=== PATIENT | male | born 1940 | race Caucasian/White ===

== ENCOUNTER 2021-03-20 09:45 | Outpatient (REF) | payer MEDICARE, SELFPAY ==
[2021-03-20 09:53] LABS: MANUAL DIFF FLAG NO
[2021-03-20 10:53] LABS: Basophils Absolute Auto 0.1 X10*3/uL (0.0-0.2); Basophils Percent Auto 1.3 % (0-2); Eosinophils Absolute Auto 0.8 X10*3/uL (0.0-0.4); Eosinophils Percent Auto 10.7 % (0-4); Hematocrit 40.2 % (42.0-52.0); Hemoglobin 13.3 g/dl (14.0-18.0); Imm Gran Abs Auto 0.02 X10*3/uL (0.00-0.03); Imm Gran Pct Auto 0.3 % (0.0-0.4); Lymphocytes Absolute Auto 2.1 X10*3/uL (1.2-4.9); Lymphocytes Percent Auto 27.7 % (20-40); Mean Corpuscular HGB Conc 33.1 g/dl (31.0-36.0); Mean Corpuscular Volume 93.7 fL (80.0-98.0); Mean Platelet Volume 10.5 fL (9.4-12.4); Monocytes Absolute Auto 0.6 X10*3/uL (0.1-1.2); Monocytes Percent Auto 8.2 % (2-11); Neutrophils Absolute Auto 3.8 x10*3/uL (2.0-8.3); Neutrophils Percent Auto 51.8 % (45-73); Platelet Count 266 X10*3/uL (160-400); Red Blood Count 4.29 X10*6/uL (4.60-5.80); Red Cell Distribution Width 12.9 % (11.0-16.0); White Blood Count 7.4 X10*3/uL (4.8-10.8)
[2021-03-20 11:59] LABS: Alanine Aminotransferase 13 U/L (0-40); Albumin Level 4.1 g/dL (3.5-5.0); Alkaline Phosphatase 57 U/L (39-117); Anion Gap 14 (12-20); Aspartate Amino Transferase 15 U/L (5-37); Bilirubin Total 1.8 mg/dL (0.0-1.0); Blood Urea Nitrogen 31 mg/dL (9-16); Calcium 9.5 mg/dL (8.4-10.2); Carbon Dioxide 25 mmol/L (22-29); Chloride 105 mmol/L (96-108); Cholesterol 199 mg/dL; Estimated Glomerular Filt Rate > 60; Glucose Fasting 101 mg/dL (60-99); HDL Cholesterol 47 mg/dL; LDL Cholesterol Calculated 123 mg/dl; Potassium 4.6 mmol/L (3.3-5.1); Sodium 139 mmol/L (135-145); Triglycerides 148 mg/dL
[2021-03-20 12:10] LABS: Prostate Specific Antigen 8.15 ng/mL (<0.05-4.0); Vitamin D 25-OH Total 65.6 ng/mL (>30)
== END 2021-03-20 09:46 | disposition home or self-care (01) ==
LOC: HO.LAB 09:45
PROVIDERS: PCP Internal Medicine Medical Oncology; Visit Provider Internal Medicine Medical Oncology
DX: I10 Essential (primary) hypertension (principal); E66.3 Overweight; Z12.5 Encounter for screening for malignant neoplasm of prostate
CPT/HCPCS: 36415; 80053; 80061; 82306; 84153; 85025

== ENCOUNTER 2021-10-17 03:07 | Inpatient (IN) | payer OTHER, MEDICARE, SELFPAY ==
[2021-10-17] VITALS (31 sets, daily range): BP systolic 92–167; BP diastolic 33–77; PULSE 38–84; RESP 0–26; TEMP 34.7–37; O2SAT 11–100; BMI 25.6; BMI 26.8
--- NOTE | 2021-10-17 | ECG_ITS ---
Test Reason : C/A Blood Pressure : / mmHG Vent. Rate : 068 BPM Atrial Rate : 068 BPM P-R Int : 140 ms QRS Dur : 098 ms QT Int : 368 ms P-R-T Axes : 007 000 051 degrees QTc Int : 391 ms Normal sinus rhythm Minimal voltage criteria for LVH, may be normal variant ( Malik product ) ST depression in Lateral leads Abnormal ECG No previous ECGs available Referred By: Ronnie Sena Electronically Signed By:JYOTI GARCIA MD
--- NOTE | ~2021-10-17 | XR_ITS ---
EXAMINATION: XR CHEST CLINICAL INFORMATION: Status post OG tube and thoracic line catheter placement chest radiograph. COMPARISON: Chest radiograph done earlier today at 3:26 AM. TECHNIQUE: Frontal view of the chest was obtained. FINDINGS: Interval placement of left subclavian central catheter is noted with its tip seen projecting at the cavoatrial junction. [id number]-do-xjdryetr volume left-sided pneumothorax is also noted, new since prior study done earlier today. The tip of the endotracheal tube is located approximately 3.7 cm above the level of the charla. The tip of the OG tube is below the level of the diaphragm and is projecting in the region of the fundus of the stomach. Previously documented bilateral diffuse airspace disease appear unchanged. XR/XR chest 1V IMPRESSION: 1. Interval placement of left subclavian central catheter and [id number] volume left-sided pneumothorax. 2. The tip of the endotracheal tube is located approximately 3.7 cm above the level of the charla, unchanged. 3. Interval placement of OG tube is seen with its tip seen projecting below the diaphragm in the region of the fundus of the stomach. 4. No significant change within the lung field since the prior study done earlier today at 3:26 AM. This critical result was discussed with Dr. Garcia at 10:32 AM on 10/17/2021 and it was ascertained that the content and urgency of the report was understood at the time of direct communication.
--- NOTE | ~2021-10-17 | CT_ITS ---
EXAMINATION: CT CERVICAL SPINE WITHOUT CONTRAST; UNENHANCED CT OF THE HEAD. CLINICAL INFORMATION: Unresponsive COMPARISON: None TECHNIQUE: Routine unenhanced CT of the head with multiple coronal and sagittal reformatted images; routine unenhanced CT of the cervical spine with multiple coronal and sagittal reformatted images. This CT examination was performed using dose optimization techniques as appropriate, variously including the following: *Automated exposure control *Adjustment of mA and/or kV according to patient size (this includes techniques or standardized protocols for targeted exams where dose is matched to indication/reason for exam; i.e. extremities or head) *Use of iterative reconstruction technique DLP: 1302 mGy-cm FINDINGS: CT head: Mild diffuse commensurate prominence of ventricles and sulci. No intercranial hemorrhage, tumors or acute infarcts. Mild periventricular white matter patchy hypodensities. Segmental calcific atherosclerosis of the cavernous portions of the internal carotid arteries. Mild concentric mucosal thickening throughout the paranasal sinuses and mild retained secretions within the sphenoid sinus. Mild bilateral proptosis. No significant mastoid or middle air cavity effusions. CT cervical spine: No fractures or acute appearing subluxations noted. Moderate multilevel intervertebral disc space narrowing and mild multilevel facet arthropathic changes. The insulin visualized lung apices demonstrate evidence of alveolar pulmonary edema. Partial visualization of an endotracheal tube. Grossly normal thyroid. Dense bilateral carotid bulb calcific atherosclerosis. CT/CT head/brain wo con IMPRESSION: CT head: *No acute intracranial abnormalities. *Mild chronic pansinusitis. CT cervical spine: *No acute fractures or subluxations. *Partial visualization of alveolar pulmonary edema within the incidentally visualized lung apices. *Dense bilateral carotid bulb calcific atherosclerosis.
--- NOTE | ~2021-10-17 | CT_ITS ---
EXAMINATION: CT angio chest PE protocol, CT abdomen pelvis w con CLINICAL INFORMATION: Reason for Exam leg pain, cardiac arrest abdominal pain COMPARISON: Chest radiograph 10/16/2021. TECHNIQUE: IV contrast enhanced CT angiography of the chest with multiple 3-D MIPS angiographic reformatted images processed on the technologist workstation under concurrent supervision; IV contrast enhanced CT of the abdomen pelvis with multiple coronal and sagittal reformatted images. This CT examination was performed using dose optimization techniques as appropriate, variously including the following: *Automated exposure control *Adjustment of mA and/or kV according to patient size (this includes techniques or standardized protocols for targeted exams where dose is matched to indication/reason for exam; i.e. extremities or head) *Use of iterative reconstruction technique Intravenous contrast: Omnipaque 350 85 mL. DLP: 1302 mGy-cm FINDINGS: Pulmonary arterial system: High density intraluminal opacification of the visualized pulmonary arterial system is noted. No intraluminal filling defects are noted to suggest pulmonary emboli. The main and central pulmonary arteries are normal in caliber. Mediastinum: Endotracheal tube terminating 3 cm superior to the charla. Normal aortic caliber. Partial visualization of moderate-marked diffuse coronary artery calcific atherosclerosis. Normal heart size. No pericardial thickening or fluid collections. Lungs and pleura: Diffuse septal thickening and groundglass opacities are present. Bibasilar atelectasis of the lungs is noted. No pneumothoraces. CHEST WALL: No axillary lymphadenopathy. Liver: Trace fluid within the right subhepatic space. Periportal edema of the liver. Biliary system: Partially lapsed gallbladder. No biliary duct dilatation. Pancreas: Normal. Spleen: Trace left subphrenic fluid. Normal appearance of the spleen. Adrenal glands: Normal. Kidneys: 2.5 cm rounded low density benign-appearing simple cyst of the left kidney requiring no additional imaging follow-up. No hydronephrosis. Urinary bladder: Distended. Gastrointestinal system: Moderate sigmoid diverticulosis. Normal appendix. No intestinal dilatation or mural thickening. No free intraperitoneal gas. Prominent gaseous distention of the stomach. Abdominal wall: No hernias. Prostate: Moderate diffuse enlargement with the prostate measuring 4.5 cm in AP dimension. Abdominal lymphovascular structures: Diffuse calcific atherosclerosis. Probable iatrogenic gas within right inguinal veins. Osseous structures: Chronic spondylosis of the lumbar spine. Chronic posttraumatic deformity of the right fifth lateral rib segment. Intact sternum. CT/CT angio chest PE protocol IMPRESSION: *CT pulmonary angiogram negative for pulmonary bullae. *Moderate-marked interstitial and alveolar pulmonary edema. *Marked bibasilar atelectasis of the lungs. *Marked diffuse coronary artery calcific atherosclerosis. *Gaseous distention of the stomach. *Trace bilateral subphrenic free intraperitoneal fluid which may be reactive to pulmonary abnormalities. No free intraperitoneal gas. *Periportal edema of the liver which may be secondary to recent hypotension. VTE: Negative
--- NOTE | ~2021-10-17 | MR_ITS ---
EXAMINATION: MR BRAIN WITHOUT CONTRAST CLINICAL INFORMATION: Status post cardiac arrest. Rule out stroke. COMPARISON: Head CT 10/17/2021. TECHNIQUE: Multiplanar, multisequence imaging of the brain was performed without intravenous contrast. FINDINGS: There is extensive restricted diffusion throughout the bilateral midbrain and kori as well as within the upper portion of the ventral medulla. There is large confluent restricted diffusion throughout the nearly the entire cerebellum with some of the inferior and right-sided cerebellar parenchyma spared. There is extensive restricted diffusion throughout the majority of the right middle cerebral artery vascular territory involving the frontal lobe, parietal lobe, temporal lobe, insula, basal ganglia. 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 There is evolving cytotoxic edema but no regional mass effect or midline shift is seen at this time. There is no evidence of hemorrhagic transformation. The major arterial flow voids appear grossly preserved. There is paranasal sinus mucosal thickening. MR/MR head/brain wo con IMPRESSION: Extensive restricted diffusion with evolving cytotoxic edema throughout the supratentorial and infratentorial structures compatible with severe hypoxic anoxic injury. Significant brainstem involvement is seen. No midline shift or herniation at this time. This critical result was discussed with Dr. Garcia on 10/17/2021 2:05 PM, and it was ascertained that the content and urgency of the report was understood at the time of direct communication.
--- NOTE | ~2021-10-17 | CT_ITS ---
EXAMINATION: CT CERVICAL SPINE WITHOUT CONTRAST; UNENHANCED CT OF THE HEAD. CLINICAL INFORMATION: Unresponsive COMPARISON: None TECHNIQUE: Routine unenhanced CT of the head with multiple coronal and sagittal reformatted images; routine unenhanced CT of the cervical spine with multiple coronal and sagittal reformatted images. This CT examination was performed using dose optimization techniques as appropriate, variously including the following: *Automated exposure control *Adjustment of mA and/or kV according to patient size (this includes techniques or standardized protocols for targeted exams where dose is matched to indication/reason for exam; i.e. extremities or head) *Use of iterative reconstruction technique DLP: 1302 mGy-cm FINDINGS: CT head: Mild diffuse commensurate prominence of ventricles and sulci. No intercranial hemorrhage, tumors or acute infarcts. Mild periventricular white matter patchy hypodensities. Segmental calcific atherosclerosis of the cavernous portions of the internal carotid arteries. Mild concentric mucosal thickening throughout the paranasal sinuses and mild retained secretions within the sphenoid sinus. Mild bilateral proptosis. No significant mastoid or middle air cavity effusions. CT cervical spine: No fractures or acute appearing subluxations noted. Moderate multilevel intervertebral disc space narrowing and mild multilevel facet arthropathic changes. The insulin visualized lung apices demonstrate evidence of alveolar pulmonary edema. Partial visualization of an endotracheal tube. Grossly normal thyroid. Dense bilateral carotid bulb calcific atherosclerosis. CT/CT cervical spine wo con IMPRESSION: CT head: *No acute intracranial abnormalities. *Mild chronic pansinusitis. CT cervical spine: *No acute fractures or subluxations. *Partial visualization of alveolar pulmonary edema within the incidentally visualized lung apices. *Dense bilateral carotid bulb calcific atherosclerosis.
--- NOTE | ~2021-10-17 | XR_ITS ---
EXAMINATION: XR CHEST CLINICAL INFORMATION: Status post cardiac arrest COMPARISON: None TECHNIQUE: Frontal view of the chest was obtained. FINDINGS: An endotracheal tube terminates 3 cm superior to the charla. Multiple external artifacts are noted. The heart size is normal. Minimal blunting of the costophrenic sulci. No pneumothoraces. Diffuse pulmonary vascular indistinctness and fine pulmonary reticular opacities. XR/XR chest 1V IMPRESSION: *Endotracheal tube terminating 3 cm superior to the charla. *Findings suspicious for moderate interstitial pulmonary edema. Possible trace bilateral pleural effusions.
--- NOTE | ~2021-10-17 | XR_ITS ---
EXAMINATION: XR CHEST CLINICAL INFORMATION: Status post OG tube and thoracic line catheter placement chest radiograph. COMPARISON: Chest radiograph done earlier today at 3:26 AM. TECHNIQUE: Frontal view of the chest was obtained. FINDINGS: Interval placement of left subclavian central catheter is noted with its tip seen projecting at the cavoatrial junction. Wmrwt-sn-ibqxymkg volume left-sided pneumothorax is also noted, new since prior study done earlier today. The tip of the endotracheal tube is located approximately 3.7 cm above the level of the charla. The tip of the OG tube is below the level of the diaphragm and is projecting in the region of the fundus of the stomach. Previously documented bilateral diffuse airspace disease appear unchanged. XR/XR chest 1V IMPRESSION: 1. Interval placement of left subclavian central catheter and [id number] volume left-sided pneumothorax. 2. The tip of the endotracheal tube is located approximately 3.7 cm above the level of the charla, unchanged. 3. Interval placement of OG tube is seen with its tip seen projecting below the diaphragm in the region of the fundus of the stomach. 4. No significant change within the lung field since the prior study done earlier today at 3:26 AM. This critical result was discussed with Dr. Garcia at 10:32 AM on 10/17/2021 and it was ascertained that the content and urgency of the report was understood at the time of direct communication.
--- NOTE | 2021-10-17 03:29 | ECG_ITS ---
Test Reason : BRADYCARDIA Blood Pressure : / mmHG Vent. Rate : 046 BPM Atrial Rate : 046 BPM P-R Int : 112 ms QRS Dur : 094 ms QT Int : 450 ms P-R-T Axes : 060 033 066 degrees QTc Int : 393 ms Sinus bradycardia T wave abnormality, consider lateral ischemia Abnormal ECG When compared with ECG of 17-OCT-2021 03:22, QRS duration has decreased ST no longer elevated in Anterior leads T wave inversion now evident in Lateral leads Referred By: Sara Wharton Electronically Signed By:JYOTI GARCIA MD
--- NOTE | 2021-10-17 03:31 | ED_ITS ---
HPI - General Adult General Chief complaint: Cardiac Arrest/CPR Stated complaint: Unresponsive Time Seen by Provider: 10/17/21 03:28 Source: EMS Mode of arrival: EMS Limitations: no limitations History of Present Illness HPI narrative: Patient comes to the emergency room after being found unresponsive by his . Per EMS, patient had been complaining left knee pain and left lower extremity pain. Around 21:00 was the last time that the patient well. Approximately around 02:00, the patient's found him sitting, with agonal breathing, unresponsive. 911 was called. On arrival of EMS, patient was in agonal breathing, had a pulse. Shortly after, patient was in cardiac arrest, PEA. 20 minutes of CPR were done by EMS, for epinephrine. Patient regained ROSC. EMS attempted to intubate the patient, this was a difficult airway, a large blood clot was seen the patient's airway. On arrival to the emergency room, patient had a pulse, being bagged. Patient was intubated immediately Related Data Allergies Allergy/AdvReac Type Severity Reaction Status Date / Time No Known Allergies Allergy Unverified 01/10/20 16:53 Review of Systems Review of Systems: Yes Unobtainable due to mental condition [facility] [place] Past Medical History Medical History (Updated 10/17/21 @ 05:53 by Sara Wharton MD) Hypertension Social History Social History Advance Directives: No Advance Directives Information Provided: No Physical Exam ED Vital Signs: Vital Signs - 24 hr 10/17/21 04:04 10/17/21 04:18 10/17/21 04:22 Pulse Rate 75 59 Respiratory Rate 22 H Blood Pressure 143/76 H 125/53 L Pulse Oximetry 91 L Oxygen Delivery Method Mechanical Ventilation Oxygen Flow Rate 55 Fraction of Inspired Oxygen 45 100 10/17/21 05:30 Pulse Rate 47 L Respiratory Rate 20 Blood Pressure 109/44 L Pulse Oximetry 100 Oxygen Delivery Method Mechanical Ventilation Oxygen Flow Rate 55 Fraction of Inspired Oxygen 100 BMI result Body Mass Index 25.6 Const Other: Appearance: Unresponsive Eyes: Pupils equal, round and reactive to light. ENT: Blood clots in the oropharynx Neck: Normal inspection. Neck supple. No lymph nodes noted. No crepitus CVS: Normal heart rate and rhythm. Pulses normal. Normal S1 and S2, strong pulse Respiratory: Spontaneous respirations, being assisted with Ambu bag Abdomen: Soft distended Skin: Skin warm and dry. Normal skin color. Normal skin turgor. Extremities: +2 lower extremity edema Neuro: Unresponsive Psych: Unresponsive Course Course Course Narrative: 20 mg of etomidate and 50 mg of rocuronium were used for intubation. Of note, this was a difficult intubation. The vocal cords were found to be significantly anterior to the patient's neck, I was able to pass a bougie blindly and intubate the patient All the labs pending. It is possible the patient may have had a pulmonary embolisms. Earlier today he had leg pain, then he lost consciousness without clear etiology. Labs and CT scan for PE pending. CT is negative for pulmonary embolism, patient does have pulmonary edema, BNP 983. EKGs show depressions in lateral leads 05:40, patient is starting to move lower extremities. Patient will be started on a Versed drip I discussed the patient with Dr. [place]. At this time we will wait for a 2nd troponin, patient likely has cardiogenic pulmonary edema. No heparin to be started at this time. Medical Decision Making Lab Data Result diagrams: 10/17/21 03:19 10/17/21 03:19 Labs: Lab Results 10/17/21 10/17/21 10/17/21 Range/Units 03:19 03:19 03:19 WBC 19.5 H (4.8-10.8) X10*3/uL RBC 3.89 L (4.60-5.80) X10*6/uL Hgb 11.8 L (14.0-18.0) g/dl Hct 38.9 L (42.0-52.0) % MCV 100.0 H (80.0-98.0) fL MCH 30.3 (27.0-33.0) pg MCHC 30.3 L (31.0-36.0) g/dl RDW 13.3 (11.0-16.0) % Plt Count 245 (160-400) X10*3/uL MPV 10.8 (9.4-12.4) fL Immature Gran % (Auto) 1.7 H (0.0-0.4) % Neut % (Auto) 51.4 (45-73) % Lymph % (Auto) 36.3 (20-40) % Wilson % (Auto) 5.3 (2-11) % Eos % (Auto) 4.6 H (0-4) % Baso % (Auto) 0.7 (0-2) % Lymph # (Auto) 7.1 H (1.2-4.9) X10*3/uL Wilson # (Auto) 1.0 (0.1-1.2) X10*3/uL Eos # (Auto) 0.9 H (0.0-0.4) X10*3/uL Baso # (Auto) 0.1 (0.0-0.2) X10*3/uL Abs Immat Gran (auto) 0.33 H (0.00-0.03) X10*3/uL Absolute Neuts (auto) 10.0 H (2.0-8.3) x10*3/uL Absolute Nucleated RBC 0.000 (0.0-0.012) X10*3/uL Nucleated RBC % (auto) 0.0 (0.0-0.2) /100WBC PT 12.6 (9.9-13.0) SEC INR 1.1 (0.9-1.1) D-Dimer High Sensitivty 873 NG/ML VBG pH (7.32-7.43) VBG pCO2 mmHg VBG pO2 mmHg VBG HCO3 (22-26) mmol/L VBG O2 Saturation % VBG Base Excess mmol/L Sodium 137 (135-145) mmol/L Potassium 4.9 (3.3-5.1) mmol/L Chloride 108 (96-108) mmol/L Carbon Dioxide 17 L (22-29) mmol/L Anion Gap 17 (12-20) BUN 45 H (9-16) mg/dL Creatinine 2.14 H (0.5-1.4) mg/dL Estim Creat Clear Calc TNP Estimated GFR 30 Random Glucose 323 H (60-115) mg/dL Lactic Acid (0.5-2.0) mmol/L Calcium 8.6 D (8.4-10.2) mg/dL Magnesium 2.4 (1.6-2.6) mg/dL Total Bilirubin 1.1 H (0.0-1.0) mg/dL Direct Bilirubin 0.5 (0.0-0.5) mg/dL AST 90 H (5-37) U/L ALT 87 H (0-40) U/L Alkaline Phosphatase 54 (39-117) U/L Troponin I High Sens (<3.5-35.0) ng/L B-Natriuretic Peptide (<100) pg/mL Total Protein 6.1 L (6.5-8.0) g/dL Albumin 3.6 (3.5-5.0) g/dL Lipase 23 (8-78) U/L Urine Color Urine Appearance Urine pH (5.0-8.0) Ur Specific Malone (1.005-1.025) Urine Protein (NEG-TRACE) MG/DL Urine Glucose (UA) (NEG) MG/DL Urine Ketones (NEG) MG/DL Urine Blood (NEG) Urine Nitrite (NEG) Ur Leukocyte Esterase (NEG) Urine RBC (0) /HPF Urine WBC (0-4) /HPF Ur Squamous Epith Cells /LPF Urine Bacteria /LPF Hyaline Casts /LPF Granular Casts /LPF Urine Mucus /LPF Urine Opiates Screen (Not Detect) Urine Fentanyl Screen (Not Detect) Ur Barbiturates Screen (Not Detect) Ur Phencyclidine Scrn (Not Detect) Ur Amphetamines Screen (Not Detect) U Benzodiazepines Scrn (Not Detect) Urine Cocaine Screen (Not Detect) U Marijuana (THC) Screen (Not Detect) Ethyl Alcohol mg/dL COVID-19 (JUAN) (Negative) COVID-19 Clin Com 10/17/21 10/17/21 10/17/21 Range/Units 03:19 03:19 03:19 WBC (4.8-10.8) X10*3/uL RBC (4.60-5.80) X10*6/uL Hgb (14.0-18.0) g/dl Hct (42.0-52.0) % MCV (80.0-98.0) fL MCH (27.0-33.0) pg MCHC (31.0-36.0) g/dl RDW (11.0-16.0) % Plt Count (160-400) X10*3/uL MPV (9.4-12.4) fL Immature Gran % (Auto) (0.0-0.4) % Neut % (Auto) (45-73) % Lymph % (Auto) (20-40) % Wilson % (Auto) (2-11) % Eos % (Auto) (0-4) % Baso % (Auto) (0-2) % Lymph # (Auto) (1.2-4.9) X10*3/uL Wilson # (Auto) (0.1-1.2) X10*3/uL Eos # (Auto) (0.0-0.4) X10*3/uL Baso # (Auto) (0.0-0.2) X10*3/uL Abs Immat Gran (auto) (0.00-0.03) X10*3/uL Absolute Neuts (auto) (2.0-8.3) x10*3/uL Absolute Nucleated RBC (0.0-0.012) X10*3/uL Nucleated RBC % (auto) (0.0-0.2) /100WBC PT (9.9-13.0) SEC INR (0.9-1.1) D-Dimer High Sensitivty NG/ML VBG pH (7.32-7.43) VBG pCO2 mmHg VBG pO2 mmHg VBG HCO3 (22-26) mmol/L VBG O2 Saturation % VBG Base Excess mmol/L Sodium (135-145) mmol/L Potassium (3.3-5.1) mmol/L Chloride (96-108) mmol/L Carbon Dioxide (22-29) mmol/L Anion Gap (12-20) BUN (9-16) mg/dL Creatinine (0.5-1.4) mg/dL Estim Creat Clear Calc Estimated GFR Random Glucose (60-115) mg/dL Lactic Acid 5.6 H* (0.5-2.0) mmol/L Calcium (8.4-10.2) mg/dL Magnesium (1.6-2.6) mg/dL Total Bilirubin (0.0-1.0) mg/dL Direct Bilirubin (0.0-0.5) mg/dL AST (5-37) U/L ALT (0-40) U/L Alkaline Phosphatase (39-117) U/L Troponin I High Sens 16.1 (<3.5-35.0) ng/L B-Natriuretic Peptide 983 H (<100) pg/mL Total Protein (6.5-8.0) g/dL Albumin (3.5-5.0) g/dL Lipase (8-78) U/L Urine Color Urine Appearance Urine pH (5.0-8.0) Ur Specific Malone (1.005-1.025) Urine Protein (NEG-TRACE) MG/DL Urine Glucose (UA) (NEG) MG/DL Urine Ketones (NEG) MG/DL Urine Blood (NEG) Urine Nitrite (NEG) Ur Leukocyte Esterase (NEG) Urine RBC (0) /HPF Urine WBC (0-4) /HPF Ur Squamous Epith Cells /LPF Urine Bacteria /LPF Hyaline Casts /LPF Granular Casts /LPF Urine Mucus /LPF Urine Opiates Screen (Not Detect) Urine Fentanyl Screen (Not Detect) Ur Barbiturates Screen (Not Detect) Ur Phencyclidine Scrn (Not Detect) Ur Amphetamines Screen (Not Detect) U Benzodiazepines Scrn (Not Detect) Urine Cocaine Screen (Not Detect) U Marijuana (THC) Screen (Not Detect) Ethyl Alcohol < 10 mg/dL COVID-19 (JUAN) (Negative) COVID-19 Clin Com 10/17/21 10/17/21 10/17/21 Range/Units 03:29 03:43 04:37 WBC (4.8-10.8) X10*3/uL RBC (4.60-5.80) X10*6/uL Hgb (14.0-18.0) g/dl Hct (42.0-52.0) % MCV (80.0-98.0) fL MCH (27.0-33.0) pg MCHC (31.0-36.0) g/dl RDW (11.0-16.0) % Plt Count (160-400) X10*3/uL MPV (9.4-12.4) fL Immature Gran % (Auto) (0.0-0.4) % Neut % (Auto) (45-73) % Lymph % (Auto) (20-40) % Wilson % (Auto) (2-11) % Eos % (Auto) (0-4) % Baso % (Auto) (0-2) % Lymph # (Auto) (1.2-4.9) X10*3/uL Wilson # (Auto) (0.1-1.2) X10*3/uL Eos # (Auto) (0.0-0.4) X10*3/uL Baso # (Auto) (0.0-0.2) X10*3/uL Abs Immat Gran (auto) (0.00-0.03) X10*3/uL Absolute Neuts (auto) (2.0-8.3) x10*3/uL Absolute Nucleated RBC (0.0-0.012) X10*3/uL Nucleated RBC % (auto) (0.0-0.2) /100WBC PT (9.9-13.0) SEC INR (0.9-1.1) D-Dimer High Sensitivty NG/ML VBG pH 6.98 L* (7.32-7.43) VBG pCO2 68 mmHg VBG pO2 66 mmHg VBG HCO3 16 L (22-26) mmol/L VBG O2 Saturation 75.0 % VBG Base Excess -15.9 mmol/L Sodium (135-145) mmol/L Potassium (3.3-5.1) mmol/L Chloride (96-108) mmol/L Carbon Dioxide (22-29) mmol/L Anion Gap (12-20) BUN (9-16) mg/dL Creatinine (0.5-1.4) mg/dL Estim Creat Clear Calc Estimated GFR Random Glucose (60-115) mg/dL Lactic Acid (0.5-2.0) mmol/L Calcium (8.4-10.2) mg/dL Magnesium (1.6-2.6) mg/dL Total Bilirubin (0.0-1.0) mg/dL Direct Bilirubin (0.0-0.5) mg/dL AST (5-37) U/L ALT (0-40) U/L Alkaline Phosphatase (39-117) U/L Troponin I High Sens (<3.5-35.0) ng/L B-Natriuretic Peptide (<100) pg/mL Total Protein (6.5-8.0) g/dL Albumin (3.5-5.0) g/dL Lipase (8-78) U/L Urine Color YELLOW Urine Appearance HAZY Urine pH 5.5 (5.0-8.0) Ur Specific Malone >= 1.030 H (1.005-1.025) Urine Protein 2+ H (NEG-TRACE) MG/DL Urine Glucose (UA) 250 H (NEG) MG/DL Urine Ketones NEG (NEG) MG/DL Urine Blood 2+ H (NEG) Urine Nitrite NEG (NEG) Ur Leukocyte Esterase NEG (NEG) Urine RBC 10-14 H (0) /HPF Urine WBC 1-4 (0-4) /HPF Ur Squamous Epith Cells 1+ /LPF Urine Bacteria 2+ /LPF Hyaline Casts 5-9 /LPF Granular Casts 1-4 /LPF Urine Mucus 2+ /LPF Urine Opiates Screen (Not Detect) Urine Fentanyl Screen (Not Detect) Ur Barbiturates Screen (Not Detect) Ur Phencyclidine Scrn (Not Detect) Ur Amphetamines Screen (Not Detect) U Benzodiazepines Scrn (Not Detect) Urine Cocaine Screen (Not Detect) U Marijuana (THC) Screen (Not Detect) Ethyl Alcohol mg/dL COVID-19 (JUAN) Negative (Negative) COVID-19 Clin Com See Note 10/17/21 Range/Units 04:37 WBC (4.8-10.8) X10*3/uL RBC (4.60-5.80) X10*6/uL Hgb (14.0-18.0) g/dl Hct (42.0-52.0) % MCV (80.0-98.0) fL MCH (27.0-33.0) pg MCHC (31.0-36.0) g/dl RDW (11.0-16.0) % Plt Count (160-400) X10*3/uL MPV (9.4-12.4) fL Immature Gran % (Auto) (0.0-0.4) % Neut % (Auto) (45-73) % Lymph % (Auto) (20-40) % Wilson % (Auto) (2-11) % Eos % (Auto) (0-4) % Baso % (Auto) (0-2) % Lymph # (Auto) (1.2-4.9) X10*3/uL Wilson # (Auto) (0.1-1.2) X10*3/uL Eos # (Auto) (0.0-0.4) X10*3/uL Baso # (Auto) (0.0-0.2) X10*3/uL Abs Immat Gran (auto) (0.00-0.03) X10*3/uL Absolute Neuts (auto) (2.0-8.3) x10*3/uL Absolute Nucleated RBC (0.0-0.012) X10*3/uL Nucleated RBC % (auto) (0.0-0.2) /100WBC PT (9.9-13.0) SEC INR (0.9-1.1) D-Dimer High Sensitivty NG/ML VBG pH (7.32-7.43) VBG pCO2 mmHg VBG pO2 mmHg VBG HCO3 (22-26) mmol/L VBG O2 Saturation % VBG Base Excess mmol/L Sodium (135-145) mmol/L Potassium (3.3-5.1) mmol/L Chloride (96-108) mmol/L Carbon Dioxide (22-29) mmol/L Anion Gap (12-20) BUN (9-16) mg/dL Creatinine (0.5-1.4) mg/dL Estim Creat Clear Calc Estimated GFR Random Glucose (60-115) mg/dL Lactic Acid (0.5-2.0) mmol/L Calcium (8.4-10.2) mg/dL Magnesium (1.6-2.6) mg/dL Total Bilirubin (0.0-1.0) mg/dL Direct Bilirubin (0.0-0.5) mg/dL AST (5-37) U/L ALT (0-40) U/L Alkaline Phosphatase (39-117) U/L Troponin I High Sens (<3.5-35.0) ng/L B-Natriuretic Peptide (<100) pg/mL Total Protein (6.5-8.0) g/dL Albumin (3.5-5.0) g/dL Lipase (8-78) U/L Urine Color Urine Appearance Urine pH (5.0-8.0) Ur Specific Malone (1.005-1.025) Urine Protein (NEG-TRACE) MG/DL Urine Glucose (UA) (NEG) MG/DL Urine Ketones (NEG) MG/DL Urine Blood (NEG) Urine Nitrite (NEG) Ur Leukocyte Esterase (NEG) Urine RBC (0) /HPF Urine WBC (0-4) /HPF Ur Squamous Epith Cells /LPF Urine Bacteria /LPF Hyaline Casts /LPF Granular Casts /LPF Urine Mucus /LPF Urine Opiates Screen Not Detected (Not Detect) Urine Fentanyl Screen Not Detected (Not Detect) Ur Barbiturates Screen Not Detected (Not Detect) Ur Phencyclidine Scrn Not Detected (Not Detect) Ur Amphetamines Screen Not Detected (Not Detect) U Benzodiazepines Scrn Not Detected (Not Detect) Urine Cocaine Screen Not Detected (Not Detect) U Marijuana (THC) Screen Not Detected (Not Detect) Ethyl Alcohol mg/dL COVID-19 (JUAN) (Negative) COVID-19 Clin Com Critical Care Time Critical Care Time Critical Care Time: Yes Total Critical Care Time: 120 Attestation: I have personally provided critical care time. Time includes review of lab data, radiology results, discussion with consultants, and monitoring for potential decompensation. Intervention performed as documented. Discharge Plan Discharge Clinical Impression: Cardiac arrest, CHF (congestive heart failure), LUIS DANIEL (acute kidney injury) Patient Disposition: Admitted As Inpatient
[2021-10-17 03:36] LABS: MANUAL DIFF FLAG NO
[2021-10-17 03:40] LABS: VBG Base Excess -15.9 mmol/L; VBG HCO3 16 mmol/L (22-26); VBG pCO2 68 mmHg; VBG pH 6.98 (7.32-7.43); VBG pO2 66 mmHg
[2021-10-17 03:41] LABS: Basophils Absolute Auto 0.1 X10*3/uL (0.0-0.2); Basophils Percent Auto 0.7 % (0-2); Eosinophils Absolute Auto 0.9 X10*3/uL (0.0-0.4); Eosinophils Percent Auto 4.6 % (0-4); Hematocrit 38.9 % (42.0-52.0); Hemoglobin 11.8 g/dl (14.0-18.0); Imm Gran Abs Auto 0.33 X10*3/uL (0.00-0.03); Imm Gran Pct Auto 1.7 % (0.0-0.4); Lymphocytes Percent Auto 36.3 % (20-40); Mean Corpuscular HGB Conc 30.3 g/dl (31.0-36.0); Mean Corpuscular Hemoglobin 30.3 pg (27.0-33.0); Mean Platelet Volume 10.8 fL (9.4-12.4); Monocytes Percent Auto 5.3 % (2-11); Neutrophils Percent Auto 51.4 % (45-73); Platelet Count 245 X10*3/uL (160-400); Red Blood Count 3.89 X10*6/uL (4.60-5.80); Red Cell Distribution Width 13.3 % (11.0-16.0); SCAN SMEAR FLAG 1; Venous Blood Gas Refer to POC result; White Blood Count 19.5 X10*3/uL (4.8-10.8)
[2021-10-17 03:44] LABS: Lymphocytes Absolute Auto 7.1 X10*3/uL (1.2-4.9)
[2021-10-17 03:52] LABS: INTERNATIONAL NORM RATIO 1.1 (0.9-1.1); Prothrombin Time 12.6 SEC (9.9-13.0)
[2021-10-17 03:53] LABS: B Type Natriuretic Peptide 983 pg/mL (<100); Ethanol < 10 mg/dL; Troponin-I High Sensitivity 16.1 ng/L (<3.5-35.0)
[2021-10-17 03:54] LABS: D Dimer High Sensitivity 873 NG/ML
[2021-10-17 03:56] LABS: Alanine Aminotransferase 87 U/L (0-40); Albumin Level 3.6 g/dL (3.5-5.0); Alkaline Phosphatase 54 U/L (39-117); Anion Gap 17 (12-20); Aspartate Amino Transferase 90 U/L (5-37); Bilirubin Direct 0.5 mg/dL (0.0-0.5); Bilirubin Total 1.1 mg/dL (0.0-1.0); Blood Urea Nitrogen 45 mg/dL (9-16); Calcium 8.6 mg/dL (8.4-10.2); Carbon Dioxide 17 mmol/L (22-29); Chloride 108 mmol/L (96-108); Estimated Glomerular Filt Rate 30; Glucose Random 323 mg/dL (60-115); Lipase 23 U/L (8-78); Magnesium 2.4 mg/dL (1.6-2.6); Potassium 4.9 mmol/L (3.3-5.1); Sodium 137 mmol/L (135-145); Total Protein 6.1 g/dL (6.5-8.0)
[2021-10-17 03:59] LABS: Lactic Acid 5.6 mmol/L (0.5-2.0)
[2021-10-17] MEDS: 0.9 % Sodium Chloride 1,000 ML 999 ML IVCONT (04:00)
[2021-10-17 04:08] LABS: COVID-19 Test Negative (Negative)
[2021-10-17] MEDS: iohexoL 350 MG/ML 100 ML INFUS..BTL 85 ML IV (04:25)
[2021-10-17 04:44] LABS: Appearance Urine HAZY; Color Urine YELLOW; Glucose Urine UA 250 MG/DL (NEG); Leukocyte Esterase Urine NEG (NEG); Nitrite Urine NEG (NEG); PH 5.5 (5.0-8.0); Specific Gravity - Urine >= 1.030 (1.005-1.025); UACC Culture Trigger NO; Urine Blood 2+ (NEG); Urine Ketones NEG (NEG); Urine Protein 2+ MG/DL (NEG-TRACE)
[2021-10-17 04:55] LABS: Amphetamine Screen Urine Not Detected (Not Detect); Barbiturates, Urine Not Detected (Not Detect); Benzodiazepines Screen Urine Not Detected (Not Detect); Cannabinoid Screen Urine Not Detected (Not Detect); Cocaine Screen Urine Not Detected (Not Detect); Fentanyl, urine Not Detected (Not Detect); Opiate Screen Urine Not Detected (Not Detect); Phencyclidine Screen Urine Not Detected (Not Detect)
[2021-10-17 04:56] LABS: Bacteria Urine 2+ /LPF; Mucus Urine 2+ /LPF; Squamous Epithelial Cell Urine 1+ /LPF
[2021-10-17 05:34] LABS: Reflex Lactate? Lactic Acid Added
--- NOTE | 2021-10-17 06:04 | PC.NURSE ---
Inserted talbot per Dr Wharton. No complications.
[2021-10-17] MEDS: Piperacillin Sodium/Tazobactam 3.375 GM in 0.9 % Sodium Chloride 50 ML IV (06:26)
[2021-10-17] MEDS: Heparin Sodium,Porcine 5,000 UNIT/ML VIAL 5000 UNIT SUBCUT (06:28)
--- NOTE | 2021-10-17 06:37 | P.HPCC_ITS ---
History of Present Illness Date of Service: 10/17/21 Attending physician on admission: Larry Garcia Chief Complaint: POSCT CARDIAC ARREST; PULM EDEMA; UTI; SEPSIS HPI:? 81-year-old patient with a history of hypertension, had presented to the emergency room overnight after being found unresponsive by his .? EMS personnel reported patient Ramah left knee pain and left lower extremity pain sense last night, his last well known time was approximately 09:00 o'clock at night.? He was found by his unresponsive and called 911, per EMS, the patient did have a pulse but shortly after the patient went into cardiac arrest developing PEA, approximately 20 minutes of CPR had been done by them and 1 round of epinephrine had been given regaining ROSC, the patient had to be intu bated in the ER for that was was not possible during transport Mallory patient has a difficult airway. Patient underwent becerra imaging survey including head CT which revealed no intracranial abnormalities, chest CT angiogram which revealed no PE but rather evidence of pulmonary edema which along with his BNP of 983 could have been the cause of his respiratory depression leading to PEA, the laboratory workup is significant for white count of 19.5, hemoglobin of 11.8, hematocrit 38.9, platelets 245, MCV 100, INR 1.1, venous blood gas shows pH of 6.98, pCO2 60, PO2 66, HC03 16, base excess-15.9.? Sodium potassium chloride were normal, carbon dioxide 17, anion gap 17, BUN 45, creatinine 2.14 with a baseline creatinine less than a year ago of 1.12, random glucose 323, lactic acid 5.6, S 18 90, ALT 87, BNP 983.? Patient had been given Lasix and his EKG shows T-wave inversions in the lateral leads, the case was discussed with the editor department Dr. Dallas who indicated to repeat troponin prior to deciding on anticoagulation therapy. Patient was transferred to the ICU for further care. ? ROS:? UNABLE TO OBTAIN PATIENT INTUBATED ? Past Medical History:? As above ? Past Surgical History:? As above ? Family history:? Unknown ? Social History: ?Lives at home with his ? CODE STATUS:? Full code ? Allergies:? No known drug allergies ? Home Medications:? see Med Rec ? Sepsis PHYSICAL EXAM done at 06:35: VS:? BP 109/44, HR? 47?? , 20; RR , O2 sat 100% on mechanical ventilation, temp 97.1 rectal VENT SETTINGS : AC; 18; 400;5; 45% ? General:? Sedated on a ventilator ? Skin:? Intact, no lesions, edema, erythema, clubbing or cyanosis.? No ulcers. ? HEENT:? Head is normocephalic, atraumatic, pupils pinpointed and nonreactive.? Neck is supple, no JVD or lymphadenopathy, no masses. ? Cardiac:? Clear S1-S2, no murmurs rubs or gallops. ? Pulmonary:? Diminished lung sounds with coarseness bilaterally and fine crackles at the bases, no rhonchi. ? Abdomen:? Protuberant, positive bowel sounds in all 4 quadrants.? Soft ? Musculoskeletal:? No bony abnormalities, on passive range of motion at the major joints there is no cogwheeling or crepitus, no calf asymmetry or edema of the legs. ? ? Neurologic:? As above otherwise unable to assess ? Vascular:? 2+ pulses upper and lower extremities distally. ? SIGNIFICANT LABORATORY DATA: ?As above ? REVIEW OF IMAGES: Chest x-ray impression *Endotracheal tube terminating 3 cm superior to the charla. *Findings suspicious for moderate interstitial pulmonary edema. Possible trace bilateral pleural effusions. Chest CT/abdomen pelvis CT IMPRESSION: *CT pulmonary angiogram negative for pulmonary bullae. *Moderate-marked interstitial and alveolar pulmonary edema. *Marked bibasilar atelectasis of the lungs. *Marked diffuse coronary artery calcific atherosclerosis. *Gaseous distention of the stomach. *Trace bilateral subphrenic free intraperitoneal fluid which may be reactive to pulmonary abnormalities. No free intraperitoneal gas. *Periportal edema of the liver which may be secondary to recent hypotension.?? CT head impression *No acute intracranial abnormalities. *Mild chronic pansinusitis. ? CT cervical spine impression *No acute fractures or subluxations. *Partial visualization of alveolar pulmonary edema within the incidentally visualized lung apices. *Dense bilateral carotid bulb calcific atherosclerosis. EKG REVIEW:? To my view this sinus bradycardia 46 beats per minute.? No ST elevations, no ST depressions.? There is T-wave inversions throughout the lateral leads which appear to be new in comparison to prior study.? QTC 450. ? ASSESSMENT AND PLAN: 1. Status post cardiac arrest likely due to pulmonary edema 2. UTI 3. Suspected sepsis due to above 4. Post cardiac arrest bradycardia 5. Macrocytic anemia rule out B12, folate deficiency versus chronic anemia 6. Severe metabolic/lactic acidosis in the setting of all the above 7. Hyperglycemia rule out and new onset diabetes 8. Acute kidney injury likely due to hypoperfusion Plan is to admit to the ICU, monitor I's and O's, start propofol for sedation, c ontinue ventilation support, we will not call the patient but will ensure that his temperature does not go above 98.6 F, I have ordered blood cultures x 2; started him on Zosyn which can be continued on a renally adjusted dose, check with pharmacy about this.? Even though the patient meets criteria for sepsis, IV fluids at 30 mL/kilos were not administered for the patient or id has significant pulmonary edema on therefore these is a contraindication for such treatment. Will put the patient on a Lasix drip and for further blood pressure and heart rate support we will start him on dopamine drip.? Order hemoglobin A1c and insulin sliding scale with q.6 coverage. Repeat laboratories in a.m. including lactic acid, troponin, phosphorus, CBC and Chem 7.? If the repeat troponin is elevated, this should be discussed with editor department for the possibility of anticoagulation.? Repeat an EKG this morning and ordered formal echo. ? GI PROPHYLAXIS:? IV ppi DVT PROPHYLAXIS:? Heparin subQ q.8 hours ? Critical care time used for critical evaluation of this patient, diagnosis, treatment and coordination of care, review her records and documentation TOTAL CRITICAL CARE TIME 120 MIN ? Patient's care was discussed in detail with Dr. Garcia. ?He is aware of all the above as well as the plan of care for this patient. ? 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 Currently Displaying Signs/Symptoms of Drug Intoxication Withdrawal: No Spiritual Healthcare Practices: N/a Gnosticist Healthcare Practices: N/a Cultural Healthcare Practices: N/a Advance Directives: No Advance Directives Information Provided: Yes Advance Directives on File: No Do you have thoughts of harming others: None Do you have a plan to hurt others: No Plan Recently lost weight without trying: No Eating poorly because of decreased appetite: No Nutrition Risks: On aspiration precautions service: Yes Current occupational status: retired Meds Allergies Allergy/AdvReac Type Severity Reaction Status Date / Time No Known Allergies Allergy Unverified 01/10/20 16:53 Active Medications: Current Medications Heparin Sodium (Porcine) (Heparin Sodium,Porcine 5,000 Unit/Ml Vial) 5,000 unit SUBCUT Q8H SILVIA Last Admin: 10/17/21 06:28 Dose: 5,000 unit Midazolam HCl (Versed) 50 mg in 50 mls @ 2 mls/hr IVCONT .Q24H SILVIA Last Admin: 10/17/21 06:29 Dose: Not Given Furosemide 200 mg/ Sodium (Chloride) 100 mls @ 5 mls/hr IVCONT .Q20H SILVIA Dopamine HCl/Dextrose () 400 mg in 250 mls @ 0 mls/hr IVCONT .Q0M SILVIA; Protocol Propofol (Diprivan) 1,000 mg in 100 mls @ 0 mls/hr IVCONT .Q0M SILVIA; Protocol Pantoprazole Sodium (Pantoprazole Sodium 40 Mg/10 Ml Vial) 40 mg IVPUSH DAILY [facility] Home Medications Medication Instructions Recorded Confirmed Last Taken Type amlodipine 10 mg tablet 1 tab PO DAILY 10/17/21 10/17/21 1 Day Ago History ~10/16/21 lisinopril 20 mg tablet 1 tab PO DAILY 10/17/21 10/17/21 1 Day Ago History ~10/16/21 metoprolol succinate 50 mg 1 tab PO DAILY 10/17/21 10/17/21 Unknown History tablet,extended release 24 hr Physical Exam Vital Signs: Vital Signs: Last Vital Signs Pulse 47 L 10/17/21 06:34 Resp 18 10/17/21 06:34 BP 120/44 L 10/17/21 06:34 Pulse Ox 98 10/17/21 06:34 O2 Del Method 10/17/21 06:34 O2 Flow Rate 55 10/17/21 06:34 FiO2 45 10/17/21 06:34 BMI result Body Mass Index 25.6 Results Labs CBC and Chem 7: 10/17/21 08:32 10/17/21 12:11 Labs: Laboratory Results - last 24 hr 10/17/21 10/17/21 10/17/21 03:19 03:19 03:19 MCV 100.0 H MCH 30.3 MCHC 30.3 L RDW 13.3 Plt Count 245 MPV 10.8 Immature Gran % (Auto) 1.7 H Neut % (Auto) 51.4 Lymph % (Auto) 36.3 [place] % (Auto) 5.3 Eos % (Auto) 4.6 H Baso % (Auto) 0.7 Lymph # (Auto) 7.1 H [place] # (Auto) 1.0 Eos # (Auto) 0.9 H Baso # (Auto) 0.1 Abs Immat Gran (auto) 0.33 H Absolute Neuts (auto) 10.0 H Absolute Nucleated RBC 0.000 Nucleated RBC % (auto) 0.0 PT 12.6 INR 1.1 D-Dimer High Sensitivty 873 VBG pH VBG pCO2 VBG pO2 VBG HCO3 VBG O2 Saturation VBG Base Excess Anion Gap 17 Estim Creat Clear Calc TNP Estimated GFR 30 Random Glucose 323 H Lactic Acid Lactic Acid F/U @ 2Hr Calcium 8.6 D Magnesium 2.4 Total Bilirubin 1.1 H Direct Bilirubin 0.5 AST 90 H ALT 87 H Alkaline Phosphatase 54 Troponin I High Sens B-Natriuretic Peptide Total Protein 6.1 L Albumin 3.6 Lipase 23 Urine Color Urine Appearance Urine pH Ur Specific [place] Urine Protein Urine Glucose (UA) Urine Ketones Urine Blood Urine Nitrite Ur Leukocyte Esterase Urine RBC Urine WBC Ur Squamous Epith Cells Urine Bacteria Hyaline Casts Granular Casts Urine Mucus Urine Opiates Screen Urine Fentanyl Screen Ur Barbiturates Screen Ur Phencyclidine Scrn Ur Amphetamines Screen U Benzodiazepines Scrn Urine Cocaine Screen U Marijuana (THC) Screen Ethyl Alcohol COVID-19 (JUAN) COVID-19 Clin Com 10/17/21 10/17/21 10/17/21 03:19 03:19 03:19 MCV MCH MCHC RDW Plt Count MPV Immature Gran % (Auto) Neut % (Auto) Lymph % (Auto) [place] % (Auto) Eos % (Auto) Baso % (Auto) Lymph # (Auto) [place] # (Auto) Eos # (Auto) Baso # (Auto) Abs Immat Gran (auto) Absolute Neuts (auto) Absolute Nucleated RBC Nucleated RBC % (auto) PT INR D-Dimer High Sensitivty VBG pH VBG pCO2 VBG pO2 VBG HCO3 VBG O2 Saturation VBG Base Excess Anion Gap Estim Creat Clear Calc Estimated GFR Random Glucose Lactic Acid 5.6 H* Lactic Acid F/U @ 2Hr Calcium Magnesium Total Bilirubin Direct Bilirubin AST ALT Alkaline Phosphatase Troponin I High Sens 16.1 B-Natriuretic Peptide 983 H Total Protein Albumin Lipase Urine Color Urine Appearance Urine pH Ur Specific [place] Urine Protein Urine Glucose (UA) Urine Ketones Urine Blood Urine Nitrite Ur Leukocyte Esterase Urine RBC Urine WBC Ur Squamous Epith Cells Urine Bacteria Hyaline Casts Granular Casts Urine Mucus Urine Opiates Screen Urine Fentanyl Screen Ur Barbiturates Screen Ur Phencyclidine Scrn Ur Amphetamines Screen U Benzodiazepines Scrn Urine Cocaine Screen U Marijuana (THC) Screen Ethyl Alcohol < 10 COVID-19 (JUAN) COVID-19 [place] Com 10/17/21 10/17/21 10/17/21 03:29 03:43 04:37 MCV MCH MCHC RDW Plt Count MPV Immature Gran % (Auto) Neut % (Auto) Lymph % (Auto) [place] % (Auto) Eos % (Auto) Baso % (Auto) Lymph # (Auto) [place] # (Auto) Eos # (Auto) Baso # (Auto) Abs Immat Gran (auto) Absolute Neuts (auto) Absolute Nucleated RBC Nucleated RBC % (auto) PT INR D-Dimer High Sensitivty VBG pH 6.98 L* VBG pCO2 68 VBG pO2 66 VBG HCO3 16 L VBG O2 Saturation 75.0 VBG Base Excess -15.9 Anion Gap Estim Creat Clear Calc Estimated GFR Random Glucose Lactic Acid Lactic Acid F/U @ 2Hr Calcium Magnesium Total Bilirubin Direct Bilirubin AST ALT Alkaline Phosphatase Troponin I High Sens B-Natriuretic Peptide Total Protein Albumin Lipase Urine Color YELLOW Urine Appearance HAZY Urine pH 5.5 Ur Specific [place] >= 1.030 H Urine Protein 2+ H Urine Glucose (UA) 250 H Urine Ketones NEG Urine Blood 2+ H Urine Nitrite NEG Ur Leukocyte Esterase NEG Urine RBC 10-14 H Urine WBC 1-4 Ur Squamous Epith Cells 1+ Urine Bacteria 2+ Hyaline Casts 5-9 Granular Casts 1-4 Urine Mucus 2+ Urine Opiates Screen Urine Fentanyl Screen Ur Barbiturates Screen Ur Phencyclidine Scrn Ur Amphetamines Screen U Benzodiazepines Scrn Urine Cocaine Screen U Marijuana (THC) Screen Ethyl Alcohol COVID-19 (JUAN) Negative COVID-19 Clin Com See Note 10/17/21 10/17/21 04:37 05:51 MCV MCH MCHC RDW Plt Count MPV Immature Gran % (Auto) Neut % (Auto) Lymph % (Auto) [place] % (Auto) Eos % (Auto) Baso % (Auto) Lymph # (Auto) [place] # (Auto) Eos # (Auto) Baso # (Auto) Abs Immat Gran (auto) Absolute Neuts (auto) Absolute Nucleated RBC Nucleated RBC % (auto) PT INR D-Dimer High Sensitivty VBG pH VBG pCO2 VBG pO2 VBG HCO3 VBG O2 Saturation VBG Base Excess Anion Gap Estim Creat Clear Calc Estimated GFR Random Glucose Lactic Acid Lactic Acid F/U @ 2Hr 4.0 H* Calcium Magnesium Total Bilirubin Direct Bilirubin AST ALT Alkaline Phosphatase Troponin I High Sens B-Natriuretic Peptide Total Protein Albumin Lipase Urine Color Urine Appearance Urine pH Ur Specific [place] Urine Protein Urine Glucose (UA) Urine Ketones Urine Blood Urine Nitrite Ur Leukocyte Esterase Urine RBC Urine WBC Ur Squamous Epith Cells Urine Bacteria Hyaline Casts Granular Casts Urine Mucus Urine Opiates Screen Not Detected Urine Fentanyl Screen Not Detected Ur Barbiturates Screen Not Detected Ur Phencyclidine Scrn Not Detected Ur Amphetamines Screen Not Detected U Benzodiazepines Scrn Not Detected Urine Cocaine Screen Not Detected U Marijuana (THC) Screen Not Detected Ethyl Alcohol COVID-19 (JUAN) COVID-19 Clin Com Imaging Radiologist's Impressions: Impressions Chest X-Ray 10/17/21 03:30 IMPRESSION: *Endotracheal tube terminating 3 cm superior to the charla. *Findings suspicious for moderate interstitial pulmonary edema. Possible trace bilateral pleural effusions. Abdomen/Pelvis CT 10/17/21 04:10 IMPRESSION: *CT pulmonary angiogram negative for pulmonary bullae. *Moderate-marked interstitial and alveolar pulmonary edema. *Marked bibasilar atelectasis of the lungs. *Marked diffuse coronary artery calcific atherosclerosis. *Gaseous distention of the stomach. *Trace bilateral subphrenic free intraperitoneal fluid which may be reactive to pulmonary abnormalities. No free intraperitoneal gas. *Periportal edema of the liver which may be secondary to recent hypotension. VTE: Negative Cervical Spine CT 10/17/21 04:10 IMPRESSION: CT head: *No acute intracranial abnormalities. *Mild chronic pansinusitis. CT cervical spine: *No acute fractures or subluxations. *Partial visualization of alveolar pulmonary edema within the incidentally visualized lung apices. *Dense bilateral carotid bulb calcific atherosclerosis. Chest CTA 10/17/21 04:10 IMPRESSION: *CT pulmonary angiogram negative for pulmonary bullae. *Moderate-marked interstitial and alveolar pulmonary edema. *Marked bibasilar atelectasis of the lungs. *Marked diffuse coronary artery calcific atherosclerosis. *Gaseous distention of the stomach. *Trace bilateral subphrenic free intraperitoneal fluid which may be reactive to pulmonary abnormalities. No free intraperitoneal gas. *Periportal edema of the liver which may be secondary to recent hypotension. VTE: Negative Head CT 10/17/21 04:10
[2021-10-17] MEDS: propofoL 1,000 MG/100 ML VIAL 14.6 MG IVCONT (06:47)
[2021-10-17] MEDS: DOPamine HCL/D5W 400 MG/250 ML PLAST..BAG 15.21 MG IVCONT (07:07)
[2021-10-17] MEDS: Furosemide 20 MG/2 ML VIAL IVPUSH (07:08)
[2021-10-17] MEDS: Furosemide 200 MG in 0.9 % Sodium Chloride 80 ML IVCONT (07:33)
[2021-10-17 07:57] LABS: Reflex Lactate? 2 Y
--- NOTE | 2021-10-17 08:05 | PHA.MEDREC ---
Pharmacy Consult ? Medication Reconciliation Pharmacy has completed the medication reconciliation. Spoke to pt's son who had his mother Anais with him, confirmed he was on three medications but unsure of names; stated they're from Dr. Mondragon. Only 3 meds in claim history, all three from Dr. Ryan.
[2021-10-17 08:37] LABS: MANUAL DIFF FLAG NO
[2021-10-17 08:39] LABS: Basophils Percent Auto 0.2 % (0-2); Eosinophils Percent Auto 0.1 % (0-4); Hematocrit 38.3 % (42.0-52.0); Hemoglobin 12.4 g/dl (14.0-18.0); Imm Gran Pct Auto 0.6 % (0.0-0.4); Lymphocytes Absolute Auto 0.8 X10*3/uL (1.2-4.9); Lymphocytes Percent Auto 4.9 % (20-40); Mean Corpuscular HGB Conc 32.4 g/dl (31.0-36.0); Mean Corpuscular Hemoglobin 30.7 pg (27.0-33.0); Mean Corpuscular Volume 94.8 fL (80.0-98.0); Mean Platelet Volume 10.3 fL (9.4-12.4); Monocytes Absolute Auto 1.2 X10*3/uL (0.1-1.2); Monocytes Percent Auto 7.3 % (2-11); Neutrophils Absolute Auto 14.2 x10*3/uL (2.0-8.3); Neutrophils Percent Auto 86.9 % (45-73); Platelet Count 240 X10*3/uL (160-400); Red Blood Count 4.04 X10*6/uL (4.60-5.80); Red Cell Distribution Width 13.2 % (11.0-16.0); White Blood Count 16.4 X10*3/uL (4.8-10.8)
[2021-10-17 09:06] LABS: Alanine Aminotransferase 160 U/L (0-40); Albumin Level 3.7 g/dL (3.5-5.0); Alkaline Phosphatase 58 U/L (39-117); Anion Gap 15 (12-20); Aspartate Amino Transferase 170 U/L (5-37); Bilirubin Total 1.7 mg/dL (0.0-1.0); Blood Urea Nitrogen 47 mg/dL (9-16); Calcium 8.6 mg/dL (8.4-10.2); Carbon Dioxide 18 mmol/L (22-29); Chloride 109 mmol/L (96-108); Creatinine Clr Calc Pharmacy 26.9; Estimated Glomerular Filt Rate 28; Glucose Random 262 mg/dL (60-115); Phosphorus 4.4 mg/dL (2.7-4.5); Potassium 5.1 mmol/L (3.3-5.1); Sodium 137 mmol/L (135-145); Total Protein 6.2 g/dL (6.5-8.0)
[2021-10-17] MEDS: Atropine Sulfate 1 MG/ML VIAL 0.5 MG IVPUSH (09:15)
[2021-10-17] MEDS: Atropine Sulfate 1 MG/10 ML SYRINGE 0.5 MG IVPUSH (09:35)
--- NOTE | 2021-10-17 10:20 | W.PM.CCHP ---
Procedures Date of Service Date of Service: 10/17/21 Central Line Placement Left SC: Central Line Comments: PROCEDURE:? Insertion left subclavian central venous line. INDICATION:? Post cardiac arrest; acute respiratory failure. For cardiorespiratory monitoring and IV access. ANESTHESIA:? Local plus propofol infusion. PROCEDURE:? Vascular ultrasound was used to examine the left side.? In the infraclavicular fossa, a large compressible SCL vein, along with the deeper SCL artery were identified and confirmed by color oliverio Doppler. The infraclavic was better than the supraclavicular. The left subclavian areas were widely prepped and draped in full sterile fashion.? Local anesthesia was applied to the subclavian area.? Under US guidance, the 18 g thin wall was advanced into the vein, three times, without aspirating blood. On the third time, as the needle was withdrawn, air was aspirated. The patient remained hemod stable with no change in Sat. The 18g thin wall was inserted in the traditional medial non-US guided approach into the SCL vein on the first pass.? The wire was threaded without incident.? A 7 [place] by 20 cm triple-lumen catheter was advanced into the vein up to the hub via the Seldinger technique without incident.? There was good blood return x3.? The catheter was sutured x3 and a Biopatch and dry sterile dressing were applied. Postop chest x-ray showed the line in good position with a small-mod pneumothorax, which was drained in a separate procedure..? The patient tolerated the procedure well w no other complications. Consent for Procedure: Elective - informed consent obtained
[2021-10-17 10:23] LABS: Estimated Average Glucose 114 mg/dL; Hemoglobin A1c % 5.6 %
--- NOTE | 2021-10-17 11:08 | W.PM.CCHP ---
Procedures Date of Service Date of Service: 10/17/21 Chest Tube Chest Tube 1: Progress: PROCEDURE:? Insertion Cub[place] pigtail left pneumothorax drainage catheter. ? INDICATION:? Left pneumothorax post CVL placement. ANESTHESIA:? Local plus propofol infusion. PROCEDURE:? CXR identified a left pneumothorax following CVL placement.? The patient was hemod stable and SpO2 was stable, but the size of the PTX warranted immediate drainsage.? Therefore a pneumothorax drainage catheter was placed emergently. The left chest was widely prepped.? Local anesth was applied over the left third rib in the MCL line. The 18 g needle from the Cubeyou pneumothorax tray was placed into the chest above the third rib in the MCL.? Air was easily aspirated on entering the thoracic cavity.? The wire was threaded, then the needle withdrawn and the large garcia dilator inserted.? The dilator was then removed from the wire and replaced by the pigtail mounted on its inner stylette.? The pigtail was advanced easily about 6? or so into the chest, and then hooked up to a Heimlich valve.? The pigtail was then sutured x 1 to the anter chest wall, and a DSD applied. Postop chest x-ray showed the pigtail in good position with no pneumothorax.? The Heimlich valve had intermittent barely discernable movement. The patient tolerated the procedure well w no complications.
--- NOTE | 2021-10-17 11:09 | MHC.CM.PN ---
THIS LEGAL WORD PROCESSOR MET WITH PATIENT'S (MAMI), SON ADAM MCINTOSH, AND [id number] YULIANA. NO HCP OR MOLST/DNR HAS BEEN COMPLETED. PATIENT'S ASKS THAT ALL QUESTIONS BE DIRECTED TO HER SON, ADAM MCINTOSH, SHE DOES NOT FEEL CAPABLE OF HELPING WITH DECISIONS AT THIS TIME. PRIOR TO ADMISSION, PATIENT IS INDEPENDENT WITH ALL ADL. NO ELDER SERVICES OR VNA IN THE HOME. PCP IS DR ROTHMAN. PATIENT HAS BEEN COVID-19 VACCINATED WITH ONE BOOSTER. FAMILY IS UNABLE TO RECALL DATE OR BRAND. IMM 10/17 DISCUSSED AND SIGNED. COPY PLACED IN CHART CASE MANAGEMENT TO CONTINUE TO FOLLOW
[2021-10-17] MEDS: Pantoprazole Sodium 40 MG/10 ML VIAL IVPUSH (12:00)
[2021-10-17 12:23] LABS: VBG Base Excess -3.8 mmol/L; VBG HCO3 20 mmol/L (22-26); VBG pCO2 33 mmHg; VBG pH 7.38 (7.32-7.43); VBG pO2 58 mmHg
[2021-10-17 12:27] LABS: Venous Blood Gas Refer to POC result
[2021-10-17 12:30] LABS: Lactic Acid 1.6 mmol/L (0.5-2.0)
[2021-10-17 12:33] LABS: Anion Gap 13 (12-20); Blood Urea Nitrogen 47 mg/dL (9-16); Calcium 8.8 mg/dL (8.4-10.2); Carbon Dioxide 22 mmol/L (22-29); Chloride 108 mmol/L (96-108); Creatinine Clr Calc Pharmacy 26.3; Estimated Glomerular Filt Rate 30; Glucose Random 148 mg/dL (60-115); Potassium 4.4 mmol/L (3.3-5.1); Sodium 139 mmol/L (135-145)
[2021-10-17] MEDS: propofoL 1,000 MG/100 ML VIAL 17.03 MG IVCONT (13:00)
[2021-10-17] MEDS: DOPamine HCL/D5W 400 MG/250 ML PLAST..BAG 22.81 MG IVCONT (13:00)
[2021-10-17 13:01] LABS: Troponin-I High Sensitivity 305.9 ng/L (<3.5-35.0)
--- NOTE | 2021-10-17 13:07 | P.PNCC_ITS ---
Subjective Subjective Date of Service: 10/17/21 Interval History: Mr. Montiel was admitted to ICU this morning after out of hospital cardiac arrest. 81-year-old gentleman, previously with only history of hypertension.? was woken up this morning with patient in some kind of distress.? EMS called.? Events at the scene on clear, but CPR was started in the field.? Patient was unable to be intubated in the field, we was ventilated via bag-valve mask.? IO was placed in the field, and the patient was given epinephrine x1, with ROSC after approximately 20 minute CPR.? BIBA to the ED. Brought into the ED with Ambu ventilation ongoing.? Sinus rhythm on the monitor.? Heart rate 70, sinus rhythm.? Blood pressure about 140/70. ?Sat?s in the 60s.? The patient was immediately intubated.? Sat came up to 100% on mechanical ventilation.? Workup showed bumped renal indices, with lateral ST changes? initial troponin 16.? Head CT negative.? Chest CTA showed no pulmonary embolism but the lung ohara showed pulmonary edema, as did the chest x-ray. The patient was admitted to the ICU.? My bedside ECHOCARDIOGRAM in the ICU shows probably normal LV wall thickness and cavity size.? Wall motion is normal with ejection fraction about 60%.? RV size and function is normal.? Trace AI by color-oliverio Doppler, no .? 1+ MR by color-oliverio.? 2+ TR by color-flow Doppler, CWD measured 3.0 m/sec (gradient 36mm).? IVC 2.2cm w minimal inspiratory collapse.? RVSP estimate 51 mm.? The patient has 2 cm jugular venous distention. Peep was increased to 10 cm, and his oxygenation improved dramatically.? Sat li to 94% on room air.? Lactic acid still 4.0 at 8am.? First troponin was 16, Second troponin was 220, third troponin was 305. ?Repeat EKG showed minor T-wave inversion in V5-6. Heart rate has been down into the 40s, sinus.? He responds to atropine 0.5 mg but only temporarily, so the dopamine has been increased to 7.5 ug, on which he is maintaining a heart rate in the high 50s, blood pressure in the 120 range. IMPRESSION:? DDx includes stroke vs PA. 1. Sent the patient for brain MRI. 2. Discussed with Dr. Dallas,? He thinks acute coronary event is possible, if not likely.? Advised heparin, statin, and aspirin.? Because the patient's heart rate is low, we will hold the beta-antoni. Further management and workup ongoing. I have spoken with the patient's and son at length in regards to the diagnostic possibilities, condition, and ongoing treatment. Critical care time (excluding procedures): 80 minutes Critical Care Time (minutes): 0 Physical Exam Vital Signs: Vital Signs: Last Vital Signs Temp 97.8 F 10/17/21 12:00 Pulse 57 10/17/21 12:00 Resp 13 10/17/21 12:00 BP 125/48 L 10/17/21 12:00 Pulse Ox 93 10/17/21 12:00 O2 Del Method 10/17/21 12:00 O2 Flow Rate 55 10/17/21 06:58 FiO2 50 10/17/21 12:00 BMI result Body Mass Index 26.8 Objective Data Labs CBC & Chem 7: 10/17/21 08:32 10/17/21 12:11 Labs: Laboratory Results - last 24 hr 10/17/21 10/17/21 10/17/21 03:19 03:19 03:19 WBC 19.5 H RBC 3.89 L Hgb 11.8 L Hct 38.9 L MCV 100.0 H MCH 30.3 MCHC 30.3 L RDW 13.3 Plt Count 245 MPV 10.8 Immature Gran % (Auto) 1.7 H Neut % (Auto) 51.4 Lymph % (Auto) 36.3 [place] % (Auto) 5.3 Eos % (Auto) 4.6 H Baso % (Auto) 0.7 Lymph # (Auto) 7.1 H [place] # (Auto) 1.0 Eos # (Auto) 0.9 H Baso # (Auto) 0.1 Abs Immat Gran (auto) 0.33 H Absolute Neuts (auto) 10.0 H Absolute Nucleated RBC 0.000 Nucleated RBC % (auto) 0.0 PT 12.6 INR 1.1 D-Dimer High Sensitivty 873 VBG pH VBG pCO2 VBG pO2 VBG HCO3 VBG O2 Saturation VBG Base Excess Sodium 137 Potassium 4.9 Chloride 108 Carbon Dioxide 17 L Anion Gap 17 BUN 45 H Creatinine 2.14 H Estim Creat Clear Calc TNP Estimated GFR 30 Random Glucose 323 H Estimat Average Glucose Hemoglobin A1c % Lactic Acid Lactic Acid F/U @ 2Hr Lactic Acid F/U @ 4Hr Calcium 8.6 D Phosphorus Magnesium 2.4 Total Bilirubin 1.1 H Direct Bilirubin 0.5 AST 90 H ALT 87 H Alkaline Phosphatase 54 Troponin I High Sens B-Natriuretic Peptide Total Protein 6.1 L Albumin 3.6 Lipase 23 Urine Color Urine Appearance Urine pH Ur Specific [place] Urine Protein Urine Glucose (UA) Urine Ketones Urine Blood Urine Nitrite Ur Leukocyte Esterase Urine RBC Urine WBC Ur Squamous Epith Cells Urine Bacteria Hyaline Casts Granular Casts Urine Mucus Urine Opiates Screen Urine Fentanyl Screen Ur Barbiturates Screen Ur Phencyclidine Scrn Ur Amphetamines Screen U Benzodiazepines Scrn Urine Cocaine Screen U Marijuana (THC) Screen Ethyl Alcohol COVID-19 (JUAN) COVID-19 [employer] 10/17/21 10/17/21 10/17/21 03:19 03:19 03:19 WBC RBC Hgb Hct MCV MCH MCHC RDW Plt Count MPV Immature Gran % (Auto) Neut % (Auto) Lymph % (Auto) [place] % (Auto) Eos % (Auto) Baso % (Auto) Lymph # (Auto) [place] # (Auto) Eos # (Auto) Baso # (Auto) Abs Immat Gran (auto) Absolute Neuts (auto) Absolute Nucleated RBC Nucleated RBC % (auto) PT INR D-Dimer High Sensitivty VBG pH VBG pCO2 VBG pO2 VBG HCO3 VBG O2 Saturation VBG Base Excess Sodium Potassium Chloride Carbon Dioxide Anion Gap BUN Creatinine Estim Creat Clear Calc Estimated GFR Random Glucose Estimat Average Glucose Hemoglobin A1c % Lactic Acid 5.6 H* Lactic Acid F/U @ 2Hr Lactic Acid F/U @ 4Hr Calcium Phosphorus Magnesium Total Bilirubin Direct Bilirubin AST ALT Alkaline Phosphatase Troponin I High Sens 16.1 B-Natriuretic Peptide 983 H Total Protein Albumin Lipase Urine Color Urine Appearance Urine pH Ur Specific [place] Urine Protein Urine Glucose (UA) Urine Ketones Urine Blood Urine Nitrite Ur Leukocyte Esterase Urine RBC Urine WBC Ur Squamous Epith Cells Urine Bacteria Hyaline Casts Granular Casts Urine Mucus Urine Opiates Screen Urine Fentanyl Screen Ur Barbiturates Screen Ur Phencyclidine Scrn Ur Amphetamines Screen U Benzodiazepines Scrn Urine Cocaine Screen U Marijuana (THC) Screen Ethyl Alcohol < 10 COVID-19 (JUAN) COVID-19 [employer] 10/17/21 10/17/21 10/17/21 03:29 03:43 04:37 WBC RBC Hgb Hct MCV MCH MCHC RDW Plt Count MPV Immature Gran % (Auto) Neut % (Auto) Lymph % (Auto) [place] % (Auto) Eos % (Auto) Baso % (Auto) Lymph # (Auto) [place] # (Auto) Eos # (Auto) Baso # (Auto) Abs Immat Gran (auto) Absolute Neuts (auto) Absolute Nucleated RBC Nucleated RBC % (auto) PT INR D-Dimer High Sensitivty VBG pH 6.98 L* VBG pCO2 68 VBG pO2 66 VBG HCO3 16 L VBG O2 Saturation 75.0 VBG Base Excess -15.9 Sodium Potassium Chloride Carbon Dioxide Anion Gap BUN Creatinine Estim Creat Clear Calc Estimated GFR Random Glucose Estimat Average Glucose Hemoglobin A1c % Lactic Acid Lactic Acid F/U @ 2Hr Lactic Acid F/U @ 4Hr Calcium Phosphorus Magnesium Total Bilirubin Direct Bilirubin AST ALT Alkaline Phosphatase Troponin I High Sens B-Natriuretic Peptide Total Protein Albumin Lipase Urine Color YELLOW Urine Appearance HAZY Urine pH 5.5 Ur Specific [place] >= 1.030 H Urine Protein 2+ H Urine Glucose (UA) 250 H Urine Ketones NEG Urine Blood 2+ H Urine Nitrite NEG Ur Leukocyte Esterase NEG Urine RBC 10-14 H Urine WBC 1-4 Ur Squamous Epith Cells 1+ Urine Bacteria 2+ Hyaline Casts 5-9 Granular Casts 1-4 Urine Mucus 2+ Urine Opiates Screen Urine Fentanyl Screen Ur Barbiturates Screen Ur Phencyclidine Scrn Ur Amphetamines Screen U Benzodiazepines Scrn Urine Cocaine Screen U Marijuana (THC) Screen Ethyl Alcohol COVID-19 (JUAN) Negative COVID-19 Clin Com See Note 10/17/21 10/17/21 10/17/21 04:37 05:51 08:32 WBC 16.4 H RBC 4.04 L Hgb 12.4 L Hct 38.3 L MCV 94.8 D MCH 30.7 MCHC 32.4 RDW 13.2 Plt Count 240 MPV 10.3 Immature Gran % (Auto) 0.6 H Neut % (Auto) 86.9 H Lymph % (Auto) 4.9 L [place] % (Auto) 7.3 Eos % (Auto) 0.1 Baso % (Auto) 0.2 Lymph # (Auto) 0.8 L [place] # (Auto) 1.2 Eos # (Auto) 0.0 Baso # (Auto) 0.0 Abs Immat Gran (auto) 0.10 H Absolute Neuts (auto) 14.2 H Absolute Nucleated RBC 0.000 Nucleated RBC % (auto) 0.0 PT INR D-Dimer High Sensitivty VBG pH VBG pCO2 VBG pO2 VBG HCO3 VBG O2 Saturation VBG Base Excess Sodium Potassium Chloride Carbon Dioxide Anion Gap BUN Creatinine Estim Creat Clear Calc Estimated GFR Random Glucose Estimat Average Glucose Hemoglobin A1c % Lactic Acid Lactic Acid F/U @ 2Hr 4.0 H* Lactic Acid F/U @ 4Hr Calcium Phosphorus Magnesium Total Bilirubin Direct Bilirubin AST ALT Alkaline Phosphatase Troponin I High Sens B-Natriuretic Peptide Total Protein Albumin Lipase Urine Color Urine Appearance Urine pH Ur Specific [place] Urine Protein Urine Glucose (UA) Urine Ketones Urine Blood Urine Nitrite Ur Leukocyte Esterase Urine RBC Urine WBC Ur Squamous Epith Cells Urine Bacteria Hyaline Casts Granular Casts Urine Mucus Urine Opiates Screen Not Detected Urine Fentanyl Screen Not Detected Ur Barbiturates Screen Not Detected Ur Phencyclidine Scrn Not Detected Ur Amphetamines Screen Not Detected U Benzodiazepines Scrn Not Detected Urine Cocaine Screen Not Detected U Marijuana (THC) Screen Not Detected Ethyl Alcohol COVID-19 (JUAN) COVID-19 Clin Com 10/17/21 10/17/21 10/17/21 08:32 08:32 08:32 WBC RBC Hgb Hct MCV MCH MCHC RDW Plt Count MPV Immature Gran % (Auto) Neut % (Auto) Lymph % (Auto) [place] % (Auto) Eos % (Auto) Baso % (Auto) Lymph # (Auto) [place] # (Auto) Eos # (Auto) Baso # (Auto) Abs Immat Gran (auto) Absolute Neuts (auto) Absolute Nucleated RBC Nucleated RBC % (auto) PT INR D-Dimer High Sensitivty VBG pH VBG pCO2 VBG pO2 VBG HCO3 VBG O2 Saturation VBG Base Excess Sodium 137 Potassium 5.1 Chloride 109 H Carbon Dioxide 18 L Anion Gap 15 BUN 47 H Creatinine 2.26 H Estim Creat Clear Calc 26.9 Estimated GFR 28 Random Glucose 262 H Estimat Average Glucose 114 Hemoglobin A1c % 5.6 Lactic Acid Lactic Acid F/U @ 2Hr Lactic Acid F/U @ 4Hr Calcium 8.6 Phosphorus 4.4 Magnesium Total Bilirubin 1.7 H Direct Bilirubin AST 170 H ALT 160 H Alkaline Phosphatase 58 Troponin I High Sens 220.0 H* D B-Natriuretic Peptide Total Protein 6.2 L Albumin 3.7 Lipase Urine Color Urine Appearance Urine pH Ur Specific [place] Urine Protein Urine Glucose (UA) Urine Ketones Urine Blood Urine Nitrite Ur Leukocyte Esterase Urine RBC Urine WBC Ur Squamous Epith Cells Urine Bacteria Hyaline Casts Granular Casts Urine Mucus Urine Opiates Screen Urine Fentanyl Screen Ur Barbiturates Screen Ur Phencyclidine Scrn Ur Amphetamines Screen U Benzodiazepines Scrn Urine Cocaine Screen U Marijuana (THC) Screen Ethyl Alcohol COVID-19 (JUAN) COVID-[employer] 10/17/21 10/17/21 10/17/21 08:32 12:11 12:11 WBC RBC Hgb Hct MCV MCH MCHC RDW Plt Count MPV Immature Gran % (Auto) Neut % (Auto) Lymph % (Auto) [place] % (Auto) Eos % (Auto) Baso % (Auto) Lymph # (Auto) [place] # (Auto) Eos # (Auto) Baso # (Auto) Abs Immat Gran (auto) Absolute Neuts (auto) Absolute Nucleated RBC Nucleated RBC % (auto) PT INR D-Dimer High Sensitivty VBG pH VBG pCO2 VBG pO2 VBG HCO3 VBG O2 Saturation VBG Base Excess Sodium 139 Potassium 4.4 Chloride 108 Carbon Dioxide 22 Anion Gap 13 BUN 47 H Creatinine 2.16 H Estim Creat Clear Calc 26.3 Estimated GFR 30 Random Glucose 148 H D Estimat Average Glucose Hemoglobin A1c % Lactic Acid 1.6 Lactic Acid F/U @ 2Hr Lactic Acid F/U @ 4Hr 4.0 H* Calcium 8.8 Phosphorus Magnesium Total Bilirubin Direct Bilirubin AST ALT Alkaline Phosphatase Troponin I High Sens B-Natriuretic Peptide Total Protein Albumin Lipase Urine Color Urine Appearance Urine pH Ur Specific [place] Urine Protein Urine Glucose (UA) Urine Ketones Urine Blood Urine Nitrite Ur Leukocyte Esterase Urine RBC Urine WBC Ur Squamous Epith Cells Urine Bacteria Hyaline Casts Granular Casts Urine Mucus Urine Opiates Screen Urine Fentanyl Screen Ur Barbiturates Screen Ur Phencyclidine Scrn Ur Amphetamines Screen U Benzodiazepines Scrn Urine Cocaine Screen U Marijuana (THC) Screen Ethyl Alcohol COVID-19 (JUAN) COVID-19 [employer] 10/17/21 10/17/21 12:11 12:18 WBC RBC Hgb Hct MCV MCH MCHC RDW Plt Count MPV Immature Gran % (Auto) Neut % (Auto) Lymph % (Auto) [place] % (Auto) Eos % (Auto) Baso % (Auto) Lymph # (Auto) [place] # (Auto) Eos # (Auto) Baso # (Auto) Abs Immat Gran (auto) Absolute Neuts (auto) Absolute Nucleated RBC Nucleated RBC % (auto) PT INR D-Dimer High Sensitivty VBG pH 7.38 VBG pCO2 33 VBG pO2 58 VBG HCO3 20 L VBG O2 Saturation 87.0 VBG Base Excess -3.8 Sodium Potassium Chloride Carbon Dioxide Anion Gap BUN Creatinine Estim Creat Clear Calc Estimated GFR Random Glucose Estimat Average Glucose Hemoglobin A1c % Lactic Acid Lactic Acid F/U @ 2Hr Lactic Acid F/U @ 4Hr Calcium Phosphorus Magnesium Total Bilirubin Direct Bilirubin AST ALT Alkaline Phosphatase Troponin I High Sens 305.9 H* B-Natriuretic Peptide Total Protein Albumin Lipase Urine Color Urine Appearance Urine pH Ur Specific [place] Urine Protein Urine Glucose (UA) Urine Ketones Urine Blood Urine Nitrite Ur Leukocyte Esterase Urine RBC Urine WBC Ur Squamous Epith Cells Urine Bacteria Hyaline Casts Granular Casts Urine Mucus Urine Opiates Screen Urine Fentanyl Screen Ur Barbiturates Screen Ur Phencyclidine Scrn Ur Amphetamines Screen U Benzodiazepines Scrn Urine Cocaine Screen U Marijuana (THC) Screen Ethyl Alcohol COVID-19 (JUAN) COVID-19 Clin Com Microbiology Microbiology Results: Microbiology 10/17/21 05:34 Blood - Venous Blood Culture - Final 10/17/21 05:34 Blood - Venous Blood Culture - Final Quality Stroke Does the patient have a stroke diagnosis?: No VTE Prior VTE?: No VTE Risk Level:: Medical - moderate - high VTE Device Contraindication: N/A - Device Ordered VTE Drug Contraindication: N/A - Med Ordered Critical Care Time Critical Care Time (minutes): 90
[2021-10-17 14:32] LABS: Cancel Lactic Acid Canceled
[2021-10-17 14:33] LABS: Glucose, Whole Blood 123 mg/dL (60-115)
--- NOTE | 2021-10-17 14:38 | PM.CCPN ---
Subjective Subjective Date of Service: 10/17/21 Interval History: Mr. Montiel underwent Brain MR, and I discussed the scan at length by phone with the reading radiologist. 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 No midline shift or herniation at this time, but that is most certainly incipient. Pupils now are dilated and fixed. (I reviewed the patient's CT scan from admission to the ED and, contrary to the radiologists' read, it seems to me to already show some loss of singh-white differentiation.) I spoke with the patient's two sons at length, and showed them the CT and MR scans. I noted that the brain will swell and cerebral blood flow will cease, within a few hours or at most less than 48 hrs. There is nothing to do but extubate to comfort measures, if he lives that long. They will go home and speak with the patient's and family.. ADDENDUM: Some members of the family came in later on and I discussed the situation with them at length. Critical Care Time (minutes): 60 Physical Exam Vital Signs: Vital Signs: Last Vital Signs Temp 97.8 F 10/17/21 12:00 Pulse 51 10/17/21 14:00 Resp 14 10/17/21 14:00 BP 122/46 L 10/17/21 14:00 Pulse Ox 95 10/17/21 14:00 O2 Del Method 10/17/21 14:00 O2 Flow Rate 55 10/17/21 06:58 FiO2 50 10/17/21 14:00 BMI result Body Mass Index 26.8 Objective Data Labs CBC & Chem 7: 10/17/21 08:32 10/17/21 12:11 Labs: Laboratory Results - last 24 hr 10/17/21 10/17/21 10/17/21 03:19 03:19 03:19 WBC 19.5 H RBC 3.89 L Hgb 11.8 L Hct 38.9 L MCV 100.0 H MCH 30.3 MCHC 30.3 L RDW 13.3 Plt Count 245 MPV 10.8 Immature Gran % (Auto) 1.7 H Neut % (Auto) 51.4 Lymph % (Auto) 36.3 [place] % (Auto) 5.3 Eos % (Auto) 4.6 H Baso % (Auto) 0.7 Lymph # (Auto) 7.1 H [place] # (Auto) 1.0 Eos # (Auto) 0.9 H Baso # (Auto) 0.1 Abs Immat Gran (auto) 0.33 H Absolute Neuts (auto) 10.0 H Absolute Nucleated RBC 0.000 Nucleated RBC % (auto) 0.0 PT 12.6 INR 1.1 D-Dimer High Sensitivty 873 VBG pH VBG pCO2 VBG pO2 VBG HCO3 VBG O2 Saturation VBG Base Excess Sodium 137 Potassium 4.9 Chloride 108 Carbon Dioxide 17 L Anion Gap 17 BUN 45 H Creatinine 2.14 H Estim Creat Clear Calc TNP Estimated GFR 30 POC Glucose Random Glucose 323 H Estimat Average Glucose Hemoglobin A1c % Lactic Acid Lactic Acid F/U @ 2Hr Lactic Acid F/U @ 4Hr Calcium 8.6 D Phosphorus Magnesium 2.4 Total Bilirubin 1.1 H Direct Bilirubin 0.5 AST 90 H ALT 87 H Alkaline Phosphatase 54 Troponin I High Sens B-Natriuretic Peptide Total Protein 6.1 L Albumin 3.6 Lipase 23 Urine Color Urine Appearance Urine pH Ur Specific [place] Urine Protein Urine Glucose (UA) Urine Ketones Urine Blood Urine Nitrite Ur Leukocyte Esterase Urine RBC Urine WBC Ur Squamous Epith Cells Urine Bacteria Hyaline Casts Granular Casts Urine Mucus Urine Opiates Screen Urine Fentanyl Screen Ur Barbiturates Screen Ur Phencyclidine Scrn Ur Amphetamines Screen U Benzodiazepines Scrn Urine Cocaine Screen U Marijuana (THC) Screen Ethyl Alcohol COVID-19 (JUAN) COVID-19 Clin Com 10/17/21 10/17/21 10/17/21 03:19 03:19 03:19 WBC RBC Hgb Hct MCV MCH MCHC RDW Plt Count MPV Immature Gran % (Auto) Neut % (Auto) Lymph % (Auto) [place] % (Auto) Eos % (Auto) Baso % (Auto) Lymph # (Auto) [place] # (Auto) Eos # (Auto) Baso # (Auto) Abs Immat Gran (auto) Absolute Neuts (auto) Absolute Nucleated RBC Nucleated RBC % (auto) PT INR D-Dimer High Sensitivty VBG pH VBG pCO2 VBG pO2 VBG HCO3 VBG O2 Saturation VBG Base Excess Sodium Potassium Chloride Carbon Dioxide Anion Gap BUN Creatinine Estim Creat Clear Calc Estimated GFR POC Glucose Random Glucose Estimat Average Glucose Hemoglobin A1c % Lactic Acid 5.6 H* Lactic Acid F/U @ 2Hr Lactic Acid F/U @ 4Hr Calcium Phosphorus Magnesium Total Bilirubin Direct Bilirubin AST ALT Alkaline Phosphatase Troponin I High Sens 16.1 B-Natriuretic Peptide 983 H Total Protein Albumin Lipase Urine Color Urine Appearance Urine pH Ur Specific [place] Urine Protein Urine Glucose (UA) Urine Ketones Urine Blood Urine Nitrite Ur Leukocyte Esterase Urine RBC Urine WBC Ur Squamous Epith Cells Urine Bacteria Hyaline Casts Granular Casts Urine Mucus Urine Opiates Screen Urine Fentanyl Screen Ur Barbiturates Screen Ur Phencyclidine Scrn Ur Amphetamines Screen U Benzodiazepines Scrn Urine Cocaine Screen U Marijuana (THC) Screen Ethyl Alcohol < 10 COVID-19 (JUAN) COVID-19 Clin Com 10/17/21 10/17/21 10/17/21 03:29 03:43 04:37 WBC RBC Hgb Hct MCV MCH MCHC RDW Plt Count MPV Immature Gran % (Auto) Neut % (Auto) Lymph % (Auto) [place] % (Auto) Eos % (Auto) Baso % (Auto) Lymph # (Auto) [place] # (Auto) Eos # (Auto) Baso # (Auto) Abs Immat Gran (auto) Absolute Neuts (auto) Absolute Nucleated RBC Nucleated RBC % (auto) PT INR D-Dimer High Sensitivty VBG pH 6.98 L* VBG pCO2 68 VBG pO2 66 VBG HCO3 16 L VBG O2 Saturation 75.0 VBG Base Excess -15.9 Sodium Potassium Chloride Carbon Dioxide Anion Gap BUN Creatinine Estim Creat Clear Calc Estimated GFR POC Glucose Random Glucose Estimat Average Glucose Hemoglobin A1c % Lactic Acid Lactic Acid F/U @ 2Hr Lactic Acid F/U @ 4Hr Calcium Phosphorus Magnesium Total Bilirubin Direct Bilirubin AST ALT Alkaline Phosphatase Troponin I High Sens B-Natriuretic Peptide Total Protein Albumin Lipase Urine Color YELLOW Urine Appearance HAZY Urine pH 5.5 Ur Specific [place] >= 1.030 H Urine Protein 2+ H Urine Glucose (UA) 250 H Urine Ketones NEG Urine Blood 2+ H Urine Nitrite NEG Ur Leukocyte Esterase NEG Urine RBC 10-14 H Urine WBC 1-4 Ur Squamous Epith Cells 1+ Urine Bacteria 2+ Hyaline Casts 5-9 Granular Casts 1-4 Urine Mucus 2+ Urine Opiates Screen Urine Fentanyl Screen Ur Barbiturates Screen Ur Phencyclidine Scrn Ur Amphetamines Screen U Benzodiazepines Scrn Urine Cocaine Screen U Marijuana (THC) Screen Ethyl Alcohol COVID-19 (JUAN) Negative COVID-19 Clin Com See Note 10/17/21 10/17/21 10/17/21 04:37 05:51 08:32 WBC 16.4 H RBC 4.04 L Hgb 12.4 L Hct 38.3 L MCV 94.8 D MCH 30.7 MCHC 32.4 RDW 13.2 Plt Count 240 MPV 10.3 Immature Gran % (Auto) 0.6 H Neut % (Auto) 86.9 H Lymph % (Auto) 4.9 L [place] % (Auto) 7.3 Eos % (Auto) 0.1 Baso % (Auto) 0.2 Lymph # (Auto) 0.8 L [place] # (Auto) 1.2 Eos # (Auto) 0.0 Baso # (Auto) 0.0 Abs Immat Gran (auto) 0.10 H Absolute Neuts (auto) 14.2 H Absolute Nucleated RBC 0.000 Nucleated RBC % (auto) 0.0 PT INR D-Dimer High Sensitivty VBG pH VBG pCO2 VBG pO2 VBG HCO3 VBG O2 Saturation VBG Base Excess Sodium Potassium Chloride Carbon Dioxide Anion Gap BUN Creatinine Estim Creat Clear Calc Estimated GFR POC Glucose Random Glucose Estimat Average Glucose Hemoglobin A1c % Lactic Acid Lactic Acid F/U @ 2Hr 4.0 H* Lactic Acid F/U @ 4Hr Calcium Phosphorus Magnesium Total Bilirubin Direct Bilirubin AST ALT Alkaline Phosphatase Troponin I High Sens B-Natriuretic Peptide Total Protein Albumin Lipase Urine Color Urine Appearance Urine pH Ur Specific [place] Urine Protein Urine Glucose (UA) Urine Ketones Urine Blood Urine Nitrite Ur Leukocyte Esterase Urine RBC Urine WBC Ur Squamous Epith Cells Urine Bacteria Hyaline Casts Granular Casts Urine Mucus Urine Opiates Screen Not Detected Urine Fentanyl Screen Not Detected Ur Barbiturates Screen Not Detected Ur Phencyclidine Scrn Not Detected Ur Amphetamines Screen Not Detected U Benzodiazepines Scrn Not Detected Urine Cocaine Screen Not Detected U Marijuana (THC) Screen Not Detected Ethyl Alcohol COVID-19 (JUAN) COVID-19 Clin Com 10/17/21 10/17/21 10/17/21 08:32 08:32 08:32 WBC RBC Hgb Hct MCV MCH MCHC RDW Plt Count MPV Immature Gran % (Auto) Neut % (Auto) Lymph % (Auto) [place] % (Auto) Eos % (Auto) Baso % (Auto) Lymph # (Auto) [place] # (Auto) Eos # (Auto) Baso # (Auto) Abs Immat Gran (auto) Absolute Neuts (auto) Absolute Nucleated RBC Nucleated RBC % (auto) PT INR D-Dimer High Sensitivty VBG pH VBG pCO2 VBG pO2 VBG HCO3 VBG O2 Saturation VBG Base Excess Sodium 137 Potassium 5.1 Chloride 109 H Carbon Dioxide 18 L Anion Gap 15 BUN 47 H Creatinine 2.26 H Estim Creat Clear Calc 26.9 Estimated GFR 28 POC Glucose Random Glucose 262 H Estimat Average Glucose 114 Hemoglobin A1c % 5.6 Lactic Acid Lactic Acid F/U @ 2Hr Lactic Acid F/U @ 4Hr Calcium 8.6 Phosphorus 4.4 Magnesium Total Bilirubin 1.7 H Direct Bilirubin AST 170 H ALT 160 H Alkaline Phosphatase 58 Troponin I High Sens 220.0 H* D B-Natriuretic Peptide Total Protein 6.2 L Albumin 3.7 Lipase Urine Color Urine Appearance Urine pH Ur Specific [place] Urine Protein Urine Glucose (UA) Urine Ketones Urine Blood Urine Nitrite Ur Leukocyte Esterase Urine RBC Urine WBC Ur Squamous Epith Cells Urine Bacteria Hyaline Casts Granular Casts Urine Mucus Urine Opiates Screen Urine Fentanyl Screen Ur Barbiturates Screen Ur Phencyclidine Scrn Ur Amphetamines Screen U Benzodiazepines Scrn Urine Cocaine Screen U Marijuana (THC) Screen Ethyl Alcohol COVID-19 (JUAN) COVID-19 Clin Com 10/17/21 10/17/21 10/17/21 08:32 12:11 12:11 WBC RBC Hgb Hct MCV MCH MCHC RDW Plt Count MPV Immature Gran % (Auto) Neut % (Auto) Lymph % (Auto) [place] % (Auto) Eos % (Auto) Baso % (Auto) Lymph # (Auto) [place] # (Auto) Eos # (Auto) Baso # (Auto) Abs Immat Gran (auto) Absolute Neuts (auto) Absolute Nucleated RBC Nucleated RBC % (auto) PT INR D-Dimer High Sensitivty VBG pH VBG pCO2 VBG pO2 VBG HCO3 VBG O2 Saturation VBG Base Excess Sodium 139 Potassium 4.4 Chloride 108 Carbon Dioxide 22 Anion Gap 13 BUN 47 H Creatinine 2.16 H Estim Creat Clear Calc 26.3 Estimated GFR 30 POC Glucose Random Glucose 148 H D Estimat Average Glucose Hemoglobin A1c % Lactic Acid 1.6 Lactic Acid F/U @ 2Hr Lactic Acid F/U @ 4Hr 4.0 H* Calcium 8.8 Phosphorus Magnesium Total Bilirubin Direct Bilirubin AST ALT Alkaline Phosphatase Troponin I High Sens B-Natriuretic Peptide Total Protein Albumin Lipase Urine Color Urine Appearance Urine pH Ur Specific [place] Urine Protein Urine Glucose (UA) Urine Ketones Urine Blood Urine Nitrite Ur Leukocyte Esterase Urine RBC Urine WBC Ur Squamous Epith Cells Urine Bacteria Hyaline Casts Granular Casts Urine Mucus Urine Opiates Screen Urine Fentanyl Screen Ur Barbiturates Screen Ur Phencyclidine Scrn Ur Amphetamines Screen U Benzodiazepines Scrn Urine Cocaine Screen U Marijuana (THC) Screen Ethyl Alcohol COVID-19 (JUAN) COVID-19 [employer] Com 10/17/21 10/17/21 10/17/21 12:11 12:18 14:29 WBC RBC Hgb Hct MCV MCH MCHC RDW Plt Count MPV Immature Gran % (Auto) Neut % (Auto) Lymph % (Auto) [place] % (Auto) Eos % (Auto) Baso % (Auto) Lymph # (Auto) [place] # (Auto) Eos # (Auto) Baso # (Auto) Abs Immat Gran (auto) Absolute Neuts (auto) Absolute Nucleated RBC Nucleated RBC % (auto) PT INR D-Dimer High Sensitivty VBG pH 7.38 VBG pCO2 33 VBG pO2 58 VBG HCO3 20 L VBG O2 Saturation 87.0 VBG Base Excess -3.8 Sodium Potassium Chloride Carbon Dioxide Anion Gap BUN Creatinine Estim Creat Clear Calc Estimated GFR POC Glucose 123 H Random Glucose Estimat Average Glucose Hemoglobin A1c % Lactic Acid Lactic Acid F/U @ 2Hr Lactic Acid F/U @ 4Hr Calcium Phosphorus Magnesium Total Bilirubin Direct Bilirubin AST ALT Alkaline Phosphatase Troponin I High Sens 305.9 H* B-Natriuretic Peptide Total Protein Albumin Lipase Urine Color Urine Appearance Urine pH Ur Specific [place] Urine Protein Urine Glucose (UA) Urine Ketones Urine Blood Urine Nitrite Ur Leukocyte Esterase Urine RBC Urine WBC Ur Squamous Epith Cells Urine Bacteria Hyaline Casts Granular Casts Urine Mucus Urine Opiates Screen Urine Fentanyl Screen Ur Barbiturates Screen Ur Phencyclidine Scrn Ur Amphetamines Screen U Benzodiazepines Scrn Urine Cocaine Screen U Marijuana (THC) Screen Ethyl Alcohol COVID-19 (JUAN) COVID-19 [employer]s Com Microbiology Microbiology Results: Microbiology 10/17/21 05:34 Blood - Venous Blood Culture - Final 10/17/21 05:34 Blood - Venous Blood Culture - Final Quality Stroke Does the patient have a stroke diagnosis?: No VTE Prior VTE?: No VTE Risk Level:: Medical - moderate - high VTE Device Contraindication: N/A - Device Ordered VTE Drug Contraindication: N/A - Med Ordered Critical Care Time Critical Care Time (minutes): 60
--- NOTE | 2021-10-17 18:55 | PC.NURSE ---
Assumed care at 08:25. Patient arrived on Propofol 35 mcg/kg/min. RAss -4. Best exam was with sluggish 8 mm pupils bilaterally and withdrawl to pain in bilateral lower extremities. No cough, No gag, has developed fixed 8 mm pupils at this point. Patient had initially had troponins trend up from about 16 to 220 to 305.9, MD aware. Patient had MRI this morning which showed extensive infarct with cerebral edema and brainstem involvement and neuro involved and discussed with MD. Patient has been off all sedation since 15:00. MD placed TLC to left subclavian. Patient developed pneumothorax, MD placed chest tube with hiemlich valve left upper chest with followup CXR showing improvement. Patient with no ventilator dysynchrony. #8 ETT is 26 cm VIJAYA; AC settings had initially been with rate of 18, and the rate lowered to 12 and then 8, with patient breathing oversomewhat to rate of 16, Peep lowered from 5 to 10, FiO2 lowered from 50% to 21%. Lung sounds clear throughout bilaterally. Patient was initially on lasix gtt and on propofol at 35 mcg/kg/min and these have been discontinued. Urine outputs continue to be elevated to around 160-200 cc/hour. Goals of care discussions have been had today, and family concurred to make the patient DNR, and de-escalating care.
--- NOTE | 2021-10-17 20:48 | P.ACPN_ITS ---
Advanced Care Planning Note Advanced Care Planning Note Discussed with: family member(s) Time spent (in minutes): 60 Narrative: At 19:30, had an hour long meeting with the family members including all of the patient's children, and a couple brothers and sister of the patient. We reviewed the patient's clinical scenario once again for some of them were not clear enough about the results, clinical events and current prognosis which is poor. They did discuss the case and all of the above at length with Dr. Garcia earlier however they seem to desire some reassurance and particularly they wanted me to address the current clinical scenario with the patient's who was not fully aware of all of it. BRAIN MRI IMPRESSION: Extensive restricted diffusion with evolving cytotoxic edema throughout the supratentorial and infratentorial structures compatible with severe hypoxic anoxic injury. Significant brainstem involvement is seen. No midline shift or herniation at this time. This critical result was discussed with Dr. Garcia on 10/17/2021 2:05 PM, and it was ascertained that the content and urgency of the report was understood at the time of direct communication. In addition they did ask questions in regards to the clinical presentation from the time that he was found at home, all questions were answered and the prognosis as well as the why of such prognosis was discussed in detail with all of them including the . They did meet among themselves and talk to other family members over the phone and finally came to the decision of withdrawing care, extubated the patient and making him comfortable. Care Support Representative was called and lung last rights were given to the patient. The decision to extubate the patient was passed on to me at 20:45. At this point we will proceed to extubate the patient, a stab dopamine and make the patient comfort measures only for which opiates, sedatives and anti secretion medications will be administered on an as-needed basis included but not limited to Dilaudid, Ativan Intensol and a scopolamine or atropine.
[2021-10-17] MEDS: HYDROmorphone HCl 1 MG/ML SYRINGE IVPUSH ×2 (21:03→22:55)
[2021-10-17] MEDS: LORazepam 2 MG/ML VIAL 0.5 MG IVPUSH (21:23)
[2021-10-17] MEDS: Scopolamine 1.5 MG PATCH.TD.3 EAR-BEHIND (21:23)
--- NOTE | 2021-10-17 21:31 | PC.NURSE ---
ASSUMED CARE OF PT AT 1899. PT UNRESPONSIVE ON VENTILATOR. FAMILY AT BEDSIDE. FAMILY INQUIRING ABOUT TAKING PT OFF VENTILATOR. DEWAYNE HIRSCH PA-C SPOKE WITH THEM. FAMILY DECIDED TO TERMINALLY WEAN PT.. PT GIVEN DILAUDID 1 MG IV AT 2102 AND THEN EXTUBATED BY RESP THERAPIST. FAMILY CHOSE TO LEAVE THE ROOM FOR THIS PROCEDURE BUT BACK IN THE ROOM RIGHT AFTER. PT BECAME BRADYCARDIC WITH WIDENING COMPLEXES BUT THEN JUNCTIONAL TACH, RATE 80'S-90'S. RESPIRATIONS LESS THAN 10.
--- NOTE | 2021-10-17 23:02 | PC.NURSE ---
MONITOR SHOWS ASYSTOLE. NO RESPIRATIONS. NO AUDIBLE OR PALPABLE PULSE DETECTED. PT PRONOUNCED BY DEWAYNE HIRSCH PA-C. FAMILY AT BEDSIDE. NSG DEPOSIT REFUND CLERK NOTIFIED.
--- NOTE | 2021-10-17 23:05 | P.DS_ITS ---
DS: Providers Provider Date of Service: 10/17/21 Date of admission: 10/17/21 05:37 Date of discharge: 10/17/21 Primary care physician: Unknown Physician Admitting clinician: Larry Garcia Attending physician on admission: Larry Garcia Attending physician on discharge: Larry Garcia Discharging clinician: Ronnie Sena DS: Summary Hospital Course Hospital Course: ADMISSION/DISCHARGE DIAGNOSIS: ? 1.?? 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 Status post cardiac arrest likely due to pulmonary edema 4. UTI 5. ?Acute sepsis 6. Post cardiac arrest bradycardia 7. Macrocytic anemia rule out B12, folate deficiency versus chronic anemia 8. Severe metabolic/lactic acidosis in the setting of all the above 9. Hyperglycemia rule out and new onset diabetes 10. Acute kidney injury likely due to hypoperfusion 11. Hypertension 12. Left pneumothorax post subclavian CVL placement HPI/HOSPITAL COURSE: ? PATIENT ; on 10/17/2021 at 23:00, the patient became asystolic, no apical or palpable pulses appreciated.? No breathing.? Corneal reflexes are absent, pupils dilated, fixed and eyes are glassy.? Patient was pronounced at this time, paperwork completed including certificate. ? HPI: ?81-year-old patient with a history of hypertension, had presented to the emergency room overnight after being found unresponsive by his .? EMS personnel reported patient Ringle left knee pain and left lower extremity pain sense last night, his last well known time was approximately 09:00 o'clock at night.? He was found by his unresponsive and called 911, per EMS, the patient did have a pulse but shortly after the patient went into cardiac arrest developing PEA, approximately 20 minutes of CPR had been done by them and 1 round of epinephrine had been given regaining ROSC, the patient had to be intubated in the ER for that was was not possible during transport Mallory patient has a difficult airway. Patient underwent becerra imaging survey including head CT which revealed no intracranial abnormalities, chest CT angiogram which revealed no PE but rather evidence of pulmonary edema which along with his BNP of 983 could have been the cause of his respiratory depression leading to PEA, the laboratory workup is significant for white count of 19.5, hemoglobin of 11.8, hematocrit 38.9, platelets 245, MCV 100, INR 1.1, venous blood gas shows pH of 6.98, pCO2 60, PO2 66, HC03 16, base excess-15.9.? Sodium potassium chloride were normal, carbon dioxide 17, anion gap 17, BUN 45, creatinine 2.14 with a baseline creatinine less than a year ago of 1.12, random glucose 323, lactic acid 5.6, S 18 90, ALT 87, BNP 983.? Patient had been given Lasix and his EKG shows T-wave inversions in the lateral leads, the case was discussed with the production team member Dr. Dallas who indicated to repeat troponin prior to deciding on anticoagulation therapy. During the morning, the patient's troponin had did rise to approximately 340, the discussion of anticoagulation, aspirin and statin was made with the production team member who agreed but at the time the patient was not able to be given beta antoni given his low heart rate.? He had required atropine and increasing the dopamine drip due to bradycardia. The patient had a subclavian CVL line placement by Dr. Garcia, which she a had a complication of a small to moderate pneumothorax on the left side, chest tube was placed by him without further complications. Review of the head CT was concerning for some edematous changes consistent with hypoxic/anoxic brain injury and the patient was sent for an MRI which showed the following findings. ? Brain MRI IMPRESSION: Extensive restricted diffusion with evolving cytotoxic edema throughout the supratentorial and infratentorial structures compatible with severe hypoxic anoxic injury. Significant brainstem involvement is seen. No midline shift or herniation at this time. This critical result was discussed with Dr. Garcia on 10/17/2021 2:05 PM, and it was ascertained that the content and urgency of the report was understood at the time of direct communication. ? At this point, Dr. Anna had discuss all of the above information with the patient's children letting them know that the patient's prognosis unfortunately is very poor and the chances of him surviving this catastrophic event was almost non.? Lengthy discussions took place about the possibility of making him comfortable and performing a end of life extubation and subsequent transition to comfort care only.? Initially they had thought about continuing with care until tomorrow but tonight around 730 I had a lengthy discussion with them, all questions were answered and we discussed the clinical scenario and prognosis at length; however at this point we involved the patient's daughter and as well as other family members were in the waiting room.? They were all in agreement that they do not want him to sulfur and a rather transition him to comfort measures. We were able to get a health care aide and give the patient his last rights, the patient was then medicated with Dilaudid, subsequently extubated at 2100; the patient wa s given a total of 2 doses of Dilaudid, 1 Ativan and scopolamine patch was applied for secretions. ? The patient remained very comfortable for approximately 2 hours, all family members were coming and going from the patient's room, at 23:00 I noted the patient developed asystole on the monitor.? I then examined the patient per notes the patient as above mentioned. Family members were guided on the future process, they do have the case finisher phone number however they have not picked up a home yet. IMAGES: Chest x-ray impression *Endotracheal tube terminating 3 cm superior to the charla. *Findings suspicious for moderate interstitial pulmonary edema. Possible trace bilateral pleural effusions. Chest CT/abdomen pelvis CT IMPRESSION: *CT pulmonary angiogram negative for pulmonary bullae. *Moderate-marked interstitial and alveolar pulmonary edema. *Marked bibasilar atelectasis of the lungs. *Marked diffuse coronary artery calcific atherosclerosis. *Gaseous distention of the stomach. *Trace bilateral subphrenic free intraperitoneal fluid which may be reactive to pulmonary abnormalities. No free intraperitoneal gas. *Periportal edema of the liver which may be secondary to recent hypotension.?? CT head impression? *No acute intracranial abnormalities. *Mild chronic pansinusitis. ? CT cervical spine impression *No acute fractures or subluxations. *Partial visualization of alveolar pulmonary edema within the incidentally visualized lung apices. *Dense bilateral carotid bulb calcific atherosclerosis. ADMISSION EKG REVIEW:? To my view this sinus bradycardia 46 beats per minute.? No ST elevations, no ST depressions.? There is T-wave inversions throughout the lateral leads which appear to be new in comparison to prior study.? QTC 450. ? Time Spent with Patient Time attestation: Total time spent providing and/or coordinating discharge services: Discharge coordination time: Greater than 30 minutes Quality: Safe Use of Opioids Does Pt have an Active Cancer Diagnosis on the Problem List?: No Quality: Stroke Does the patient have a stroke diagnosis?: No Physical Exam Vital Signs: Vital Signs: Last Vital Signs Temp 98.6 F 10/17/21 20:00 Pulse 38 L 10/17/21 22:54 Resp 8 L 10/17/21 22:54 BP 92/36 L 10/17/21 22:54 Pulse Ox 28 L 10/17/21 22:54 O2 Del Method 10/17/21 22:54 O2 Flow Rate 55 10/17/21 06:58 FiO2 21 10/17/21 21:00 BMI result Body Mass Index 26.8 DS: Data Data Completed and Pending Labs on day of discharge: Laboratory Results - last 24 hr 10/17/21 10/17/21 10/17/21 03:19 03:19 03:19 WBC 19.5 H RBC 3.89 L Hgb 11.8 L Hct 38.9 L MCV 100.0 H MCH 30.3 MCHC 30.3 L RDW 13.3 Plt Count 245 MPV 10.8 Immature Gran % (Auto) 1.7 H Neut % (Auto) 51.4 Lymph % (Auto) 36.3 [place] % (Auto) 5.3 Eos % (Auto) 4.6 H Baso % (Auto) 0.7 Lymph # (Auto) 7.1 H [place] # (Auto) 1.0 Eos # (Auto) 0.9 H Baso # (Auto) 0.1 Abs Immat Gran (auto) 0.33 H Absolute Neuts (auto) 10.0 H Absolute Nucleated RBC 0.000 Nucleated RBC % (auto) 0.0 PT 12.6 INR 1.1 D-Dimer High Sensitivty 873 VBG pH VBG pCO2 VBG pO2 VBG HCO3 VBG O2 Saturation VBG Base Excess Sodium 137 Potassium 4.9 Chloride 108 Carbon Dioxide 17 L Anion Gap 17 BUN 45 H Creatinine 2.14 H Estim Creat Clear Calc TNP Estimated GFR 30 POC Glucose Random Glucose 323 H Estimat Average Glucose Hemoglobin A1c % Lactic Acid Lactic Acid F/U @ 2Hr Lactic Acid F/U @ 4Hr Calcium 8.6 D Phosphorus Magnesium 2.4 Total Bilirubin 1.1 H Direct Bilirubin 0.5 AST 90 H ALT 87 H Alkaline Phosphatase 54 Troponin I High Sens B-Natriuretic Peptide Total Protein 6.1 L Albumin 3.6 Lipase 23 Urine Color Urine Appearance Urine pH Ur Specific [place] Urine Protein Urine Glucose (UA) Urine Ketones Urine Blood Urine Nitrite Ur Leukocyte Esterase Urine RBC Urine WBC Ur Squamous Epith Cells Urine Bacteria Hyaline Casts Granular Casts Urine Mucus Urine Opiates Screen Urine Fentanyl Screen Ur Barbiturates Screen Ur Phencyclidine Scrn Ur Amphetamines Screen U Benzodiazepines Scrn Urine Cocaine Screen U Marijuana (THC) Screen Ethyl Alcohol COVID-19 (JUAN) COVID-19 Must See [place] 10/17/21 10/17/21 10/17/21 03:19 03:19 03:19 WBC RBC Hgb Hct MCV MCH MCHC RDW Plt Count MPV Immature Gran % (Auto) Neut % (Auto) Lymph % (Auto) [place] % (Auto) Eos % (Auto) Baso % (Auto) Lymph # (Auto) [place] # (Auto) Eos # (Auto) Baso # (Auto) Abs Immat Gran (auto) Absolute Neuts (auto) Absolute Nucleated RBC Nucleated RBC % (auto) PT INR D-Dimer High Sensitivty VBG pH VBG pCO2 VBG pO2 VBG HCO3 VBG O2 Saturation VBG Base Excess Sodium Potassium Chloride Carbon Dioxide Anion Gap BUN Creatinine Estim Creat Clear Calc Estimated GFR POC Glucose Random Glucose Estimat Average Glucose Hemoglobin A1c % Lactic Acid 5.6 H* Lactic Acid F/U @ 2Hr Lactic Acid F/U @ 4Hr Calcium Phosphorus Magnesium Total Bilirubin Direct Bilirubin AST ALT Alkaline Phosphatase Troponin I High Sens 16.1 B-Natriuretic Peptide 983 H Total Protein Albumin Lipase Urine Color Urine Appearance Urine pH Ur Specific [place] Urine Protein Urine Glucose (UA) Urine Ketones Urine Blood Urine Nitrite Ur Leukocyte Esterase Urine RBC Urine WBC Ur Squamous Epith Cells Urine Bacteria Hyaline Casts Granular Casts Urine Mucus Urine Opiates Screen Urine Fentanyl Screen Ur Barbiturates Screen Ur Phencyclidine Scrn Ur Amphetamines Screen U Benzodiazepines Scrn Urine Cocaine Screen U Marijuana (THC) Screen Ethyl Alcohol < 10 COVID-19 (JUAN) COVID-19 Must See [place] 10/17/21 10/17/21 10/17/21 03:29 03:43 04:37 WBC RBC Hgb Hct MCV MCH MCHC RDW Plt Count MPV Immature Gran % (Auto) Neut % (Auto) Lymph % (Auto) [place] % (Auto) Eos % (Auto) Baso % (Auto) Lymph # (Auto) [place] # (Auto) Eos # (Auto) Baso # (Auto) Abs Immat Gran (auto) Absolute Neuts (auto) Absolute Nucleated RBC Nucleated RBC % (auto) PT INR D-Dimer High Sensitivty VBG pH 6.98 L* VBG pCO2 68 VBG pO2 66 VBG HCO3 16 L VBG O2 Saturation 75.0 VBG Base Excess -15.9 Sodium Potassium Chloride Carbon Dioxide Anion Gap BUN Creatinine Estim Creat Clear Calc Estimated GFR POC Glucose Random Glucose Estimat Average Glucose Hemoglobin A1c % Lactic Acid Lactic Acid F/U @ 2Hr Lactic Acid F/U @ 4Hr Calcium Phosphorus Magnesium Total Bilirubin Direct Bilirubin AST ALT Alkaline Phosphatase Troponin I High Sens B-Natriuretic Peptide Total Protein Albumin Lipase Urine Color YELLOW Urine Appearance HAZY Urine pH 5.5 Ur Specific [place] >= 1.030 H Urine Protein 2+ H Urine Glucose (UA) 250 H Urine Ketones NEG Urine Blood 2+ H Urine Nitrite NEG Ur Leukocyte Esterase NEG Urine RBC 10-14 H Urine WBC 1-4 Ur Squamous Epith Cells 1+ Urine Bacteria 2+ Hyaline Casts 5-9 Granular Casts 1-4 Urine Mucus 2+ Urine Opiates Screen Urine Fentanyl Screen Ur Barbiturates Screen Ur Phencyclidine Scrn Ur Amphetamines Screen U Benzodiazepines Scrn Urine Cocaine Screen U Marijuana (THC) Screen Ethyl Alcohol COVID-19 (JUAN) Negative COVID-19 Clin Com See Note 10/17/21 10/17/21 10/17/21 04:37 05:51 08:32 WBC 16.4 H RBC 4.04 L Hgb 12.4 L Hct 38.3 L MCV 94.8 D MCH 30.7 MCHC 32.4 RDW 13.2 Plt Count 240 MPV 10.3 Immature Gran % (Auto) 0.6 H Neut % (Auto) 86.9 H Lymph % (Auto) 4.9 L [place] % (Auto) 7.3 Eos % (Auto) 0.1 Baso % (Auto) 0.2 Lymph # (Auto) 0.8 L [place] # (Auto) 1.2 Eos # (Auto) 0.0 Baso # (Auto) 0.0 Abs Immat Gran (auto) 0.10 H Absolute Neuts (auto) 14.2 H Absolute Nucleated RBC 0.000 Nucleated RBC % (auto) 0.0 PT INR D-Dimer High Sensitivty VBG pH VBG pCO2 VBG pO2 VBG HCO3 VBG O2 Saturation VBG Base Excess Sodium Potassium Chloride Carbon Dioxide Anion Gap BUN Creatinine Estim Creat Clear Calc Estimated GFR POC Glucose Random Glucose Estimat Average Glucose Hemoglobin A1c % Lactic Acid Lactic Acid F/U @ 2Hr 4.0 H* Lactic Acid F/U @ 4Hr Calcium Phosphorus Magnesium Total Bilirubin Direct Bilirubin AST ALT Alkaline Phosphatase Troponin I High Sens B-Natriuretic Peptide Total Protein Albumin Lipase Urine Color Urine Appearance Urine pH Ur Specific [place] Urine Protein Urine Glucose (UA) Urine Ketones Urine Blood Urine Nitrite Ur Leukocyte Esterase Urine RBC Urine WBC Ur Squamous Epith Cells Urine Bacteria Hyaline Casts Granular Casts Urine Mucus Urine Opiates Screen Not Detected Urine Fentanyl Screen Not Detected Ur Barbiturates Screen Not Detected Ur Phencyclidine Scrn Not Detected Ur Amphetamines Screen Not Detected U Benzodiazepines Scrn Not Detected Urine Cocaine Screen Not Detected U Marijuana (THC) Screen Not Detected Ethyl Alcohol COVID-19 (JUAN) COVID-19 Clin Com 10/17/21 10/17/21 10/17/21 08:32 08:32 08:32 WBC RBC Hgb Hct MCV MCH MCHC RDW Plt Count MPV Immature Gran % (Auto) Neut % (Auto) Lymph % (Auto) [place] % (Auto) Eos % (Auto) Baso % (Auto) Lymph # (Auto) [place] # (Auto) Eos # (Auto) Baso # (Auto) Abs Immat Gran (auto) Absolute Neuts (auto) Absolute Nucleated RBC Nucleated RBC % (auto) PT INR D-Dimer High Sensitivty VBG pH VBG pCO2 VBG pO2 VBG HCO3 VBG O2 Saturation VBG Base Excess Sodium 137 Potassium 5.1 Chloride 109 H Carbon Dioxide 18 L Anion Gap 15 BUN 47 H Creatinine 2.26 H Estim Creat Clear Calc 26.9 Estimated GFR 28 POC Glucose Random Glucose 262 H Estimat Average Glucose 114 Hemoglobin A1c % 5.6 Lactic Acid Lactic Acid F/U @ 2Hr Lactic Acid F/U @ 4Hr Calcium 8.6 Phosphorus 4.4 Magnesium Total Bilirubin 1.7 H Direct Bilirubin AST 170 H ALT 160 H Alkaline Phosphatase 58 Troponin I High Sens 220.0 H* D B-Natriuretic Peptide Total Protein 6.2 L Albumin 3.7 Lipase Urine Color Urine Appearance Urine pH Ur Specific [place] Urine Protein Urine Glucose (UA) Urine Ketones Urine Blood Urine Nitrite Ur Leukocyte Esterase Urine RBC Urine WBC Ur Squamous Epith Cells Urine Bacteria Hyaline Casts Granular Casts Urine Mucus Urine Opiates Screen Urine Fentanyl Screen Ur Barbiturates Screen Ur Phencyclidine Scrn Ur Amphetamines Screen U Benzodiazepines Scrn Urine Cocaine Screen U Marijuana (THC) Screen Ethyl Alcohol COVID-19 (JUAN) COVID-19 Clin Com 10/17/21 10/17/21 10/17/21 08:32 12:11 12:11 WBC RBC Hgb Hct MCV MCH MCHC RDW Plt Count MPV Immature Gran % (Auto) Neut % (Auto) Lymph % (Auto) [place] % (Auto) Eos % (Auto) Baso % (Auto) Lymph # (Auto) [place] # (Auto) Eos # (Auto) Baso # (Auto) Abs Immat Gran (auto) Absolute Neuts (auto) Absolute Nucleated RBC Nucleated RBC % (auto) PT INR D-Dimer High Sensitivty VBG pH VBG pCO2 VBG pO2 VBG HCO3 VBG O2 Saturation VBG Base Excess Sodium 139 Potassium 4.4 Chloride 108 Carbon Dioxide 22 Anion Gap 13 BUN 47 H Creatinine 2.16 H Estim Creat Clear Calc 26.3 Estimated GFR 30 POC Glucose Random Glucose 148 H D Estimat Average Glucose Hemoglobin A1c % Lactic Acid 1.6 Lactic Acid F/U @ 2Hr Lactic Acid F/U @ 4Hr 4.0 H* Calcium 8.8 Phosphorus Magnesium Total Bilirubin Direct Bilirubin AST ALT Alkaline Phosphatase Troponin I High Sens B-Natriuretic Peptide Total Protein Albumin Lipase Urine Color Urine Appearance Urine pH Ur Specific [place] Urine Protein Urine Glucose (UA) Urine Ketones Urine Blood Urine Nitrite Ur Leukocyte Esterase Urine RBC Urine WBC Ur Squamous Epith Cells Urine Bacteria Hyaline Casts Granular Casts Urine Mucus Urine Opiates Screen Urine Fentanyl Screen Ur Barbiturates Screen Ur Phencyclidine Scrn Ur Amphetamines Screen U Benzodiazepines Scrn Urine Cocaine Screen U Marijuana (THC) Screen Ethyl Alcohol COVID-19 (JUAN) COVID-19 Clin Com 10/17/21 10/17/21 10/17/21 12:11 12:18 14:29 WBC RBC Hgb Hct MCV MCH MCHC RDW Plt Count MPV Immature Gran % (Auto) Neut % (Auto) Lymph % (Auto) [place] % (Auto) Eos % (Auto) Baso % (Auto) Lymph # (Auto) [place] # (Auto) Eos # (Auto) Baso # (Auto) Abs Immat Gran (auto) Absolute Neuts (auto) Absolute Nucleated RBC Nucleated RBC % (auto) PT INR D-Dimer High Sensitivty VBG pH 7.38 VBG pCO2 33 VBG pO2 58 VBG HCO3 20 L VBG O2 Saturation 87.0 VBG Base Excess -3.8 Sodium Potassium Chloride Carbon Dioxide Anion Gap BUN Creatinine Estim Creat Clear Calc Estimated GFR POC Glucose 123 H Random Glucose Estimat Average Glucose Hemoglobin A1c % Lactic Acid Lactic Acid F/U @ 2Hr Lactic Acid F/U @ 4Hr Calcium Phosphorus Magnesium Total Bilirubin Direct Bilirubin AST ALT Alkaline Phosphatase Troponin I High Sens 305.9 H* B-Natriuretic Peptide Total Protein Albumin Lipase Urine Color Urine Appearance Urine pH Ur Specific [place] Urine Protein Urine Glucose (UA) Urine Ketones Urine Blood Urine Nitrite Ur Leukocyte Esterase Urine RBC Urine WBC Ur Squamous Epith Cells Urine Bacteria Hyaline Casts Granular Casts Urine Mucus Urine Opiates Screen Urine Fentanyl Screen Ur Barbiturates Screen Ur Phencyclidine Scrn Ur Amphetamines Screen U Benzodiazepines Scrn Urine Cocaine Screen U Marijuana (THC) Screen Ethyl Alcohol COVID-19 (JUAN) COVID-19 Clin Com Discharge Plan Discharge Date/Time: 10/17/21 23:00 Patient Disposition: Discharge Diagnosis: MULTIORGAN FAILURE POST CARDIAC ARREST HYPOXIC ANOXIC BRAIN Referrals: Physician,Unknown J [Primary Care Provider] - 1 Week Discharge Medications: No Action metoprolol succinate 50 mg tablet extended release 24 hr 1 tab PO DAILY lisinopril 20 mg tablet 1 tab PO DAILY amlodipine 10 mg tablet 1 tab PO DAILY
--- NOTE | 2021-10-17 23:24 | PC.NURSE ---
[facility] CALLED AND CASE DECLINED. CASE # [id number]. SPOKE TO MILLIE.
--- NOTE | 2021-10-17 23:43 | PC.NURSE ---
SPOKE TO [employer] SUPERVISOR TO VERIFY IS PT IS MEDICAL LEGAL HIS WAS WITHIN 24 HOURS OF ADMISSION. PER ME THIS IS NOT CRITERIA FOR MEDICAL LEGAL BUT WENT THROUGH SOME QUESTIONS BY THE ME TO SEE IF THIS CASE MET ANY CRITERIA AND IT DID NOT. NO CASE FILED. POST MORTEM CARE GIVEN. FAMILY INCLUDING SON ADAM HAS LEFT AND WILL NOTIFY THE PT'S . THERE ARE NO BELONGINGS WITH PT.
[2021-10-19 07:35] LABS: Glucose, Whole Blood 302 mg/dL (60-115)
--- NOTE | 2021-11-03 19:28 | HO.SEPSISX_ITS ---
Sepsis Bolus Exclusion Sepsis Bolus Exclusion This patient met severe sepsis criteria due to the following condition(s):: Lact ate>=4mmol/L In my clinical judgement the administration of 30 ml/kg of crystalloid would be detrimental to this patient due to the patient's following conditions:: Concern for fluid overload and Other Other (must be specific):: Concern the patient will go into heart failure, but despite got 1L in ED Replace the 30 mls/kg with (*zero amount not acceptable): *Note: One of the ohara must be documented Crystalloids amount given in mls: (rate must be at least 150cc/hr): 999
--- NOTE | 2021-11-06 07:37 | MHC.CDI.RETR ---
Retrospective Query PHYSICIAN'S DOCUMENTATION REQUEST Date of Query: 11/06/21 0739 Patient Name: Jose Montiel Admit Date: 10/17/21 Dear Doctor, A review of the medical record indicates additional documentation may be needed. Please review below and update the documentation accordingly. Risk Factors/Clinical Indicators/Treatments H&P: 10/17 - Chief complaint - Sepsis, UTI Zosyn LA 5.6 WBC 19.5 RR 22 Temp 97.1 HR 47 Critical care note ICU - patient met severe sepsis criteria. Please clarify which of the following most accurately describes the above abnormalities: Sepsis Severe sepsis with organ failure (renal, respiratory etc.) Systemic manifestations of infection, with 2 or more SIRS criteria which include: -Fever > 100.4F or hypothermia < 96.8 F -Leukocytosis - WBC > 12,000 or leukopenia, WBC < 4,000 or > 10% bands -Tachycardia > 90 beats/minute -Tachypnea - RR > 20 breaths/minute or PaCO2 < 32mmHg (Source: Merck Manual 2013) Indicate the knows or suspected organism Indicate the known or suspected underlying infection, such as UTI, pneumonia, or cellulitis Indicate if a suspected bacteria infection of unknown source Indicate if associated with an implanted device such as a F/C, PICC line, orthopedic hardware, etc Indicate if there is associated organ dysfunction, such as renal or respiratory failure Other Unable to determine Use of terms such as suspected, likely, concern for, or probable (associated with a specific diagnosis that is being evaluated, monitored, or treated as if it exists) are acceptable and can be coded in the inpatient setting, when documented at the time of discharge. Thank you, Milvia Ramirez [facility], CDIS Extension: [phone] Please use your independent medical judgment in providing your response. THIS QUERY IS PART OF THE PERMANENT MEDICAL RECORD
--- NOTE | 2021-11-06 07:48 | P.CDIR_ITS ---
Retrospective Query PHYSICIAN'S DOCUMENTATION REQUEST Date of Query: 11/06/21 0748 Patient Name: Joes Montiel Admit Date: 10/17/21 Dear Doctor, A review of the medical record indicates additional documentation may be needed. Please review below and update the documentation accordingly. Clinical Indicators: Risk Factors/Clinical Indicators/Treatments Critical care procedure note 10/17: Post cardiac arrest, acute respiratory failure. For cardiorespiratory monitoring and IV access. Intubated and vented. Arrived sats 53% RR 22, agonal breathing, had a pulse, large blood clot in patient's airway, ICU admit. Based on the above, could you clarify in the Progress Notes the appropriate diagnosis, if significant, that supports the above abnormalities and additional evaluation, monitoring, and/or treatment rendered: Present on arrival, resolved, treating, etc. * Acute respiratory failure * Other (please specify) * Unable to determine Use of terms such as suspected, likely, concern for, or probable (associated with a specific diagnosis that is being evaluated, monitored, or treated as if it exists) are acceptable and can be coded in the inpatient setting, when documented at the time of discharge. Thank you, Milvia Ramirez [facility], CDIS Extension: [phone] Please use your independent medical judgment in providing your response. THIS QUERY IS PART OF THE PERMANENT MEDICAL RECORD
--- NOTE | 2021-11-06 07:55 | P.CDIR_ITS ---
Retrospective Query PHYSICIAN'S DOCUMENTATION REQUEST Date of Query: 11/06/21 0756 Patient Name: Jose Montiel Admit Date: 10/17/21 Dear Doctor, A review of the medical record indicates additional documentation may be needed. Please review below and update the documentation accordingly. Clinical Indicators: Risk Factors/Clinical Indicators/Treatments CT 10/17 - Dense bilateral carotid bulb calcific atherosclerosis. Trop 220.[address] Chest 10/17 - Coronary artery calcific atherosclerosis. D/S -The patients troponin had a rise to approx 340 discussion of anticoagulation, aspirin, static but cardiology agreed but that time pt was not able to be given beta antoni given his low HR. Please clarify the following regarding the documented myocardial infarction: Type: * NSTEMI * Other * Unable to determine Location: If known or other * Anterior wall * Inferior wall * Other (please specify) * Unable to determine Vessel Involved: If known * Left main coronary artery * Left anterior descending coronary artery * Right coronary artery * Left circumflex coronary artery * Other (please specify) * Unable to determine Use of terms such as suspected, likely, concern for, or probable (associated with a specific diagnosis that is being evaluated, monitored, or treated as if it exists) are acceptable and can be coded in the inpatient setting, when documented at the time of discharge. Thank you, Milvia Ramirez [facility], CDIS Extension:[phone] Please use your independent medical judgment in providing your response. THIS QUERY IS PART OF THE PERMANENT MEDICAL RECORD
--- NOTE | 2021-11-06 08:08 | P.CDIR_ITS ---
Retrospective Query PHYSICIAN'S DOCUMENTATION REQUEST Date of Query: 11/06/21 0809 Patient Name: Jose Montiel Admit Date: 10/17/21 Dear Doctor, A review of the medical record indicates additional documentation may be needed. Please review below and update the documentation accordingly. Clinical Indicators: Risk Factors/Clinical Indicators/Treatments Critical care progress note 10/17 - The brain will swell and cerebral blood flow will ceases within a few hours or at most less than 48 hours. Brain MRI impression 10/18 - Evolving cytotoxic edema throughout the supratentorial and infratentorial structures. D/S 10/18 - Review of the head CT was concerning for some edematous changes. Based on the above, could you clarify in the Progress Notes the appropriate diagnosis, if significant, that supports the above abnormalities and additional evaluation, monitoring, and/or treatment rendered: * Cerebral Edema * Other (please specify) * Unable to determine Use of terms such as suspected, likely, concern for, or probable (associated with a specific diagnosis that is being evaluated, monitored, or treated as if it exists) are acceptable and can be coded in the inpatient setting, when documented at the time of discharge. Thank you, Milvia Ramirez [facility], CDIS Extension: [phone] Please use your independent medical judgment in providing your response. THIS QUERY IS PART OF THE PERMANENT MEDICAL RECORD
== END 2021-10-18 | disposition expired | DRG 64 ==
LOC: HO.ED 05:59 → HO.EDOVER 06:02 → HO.ICU 06:32
PROVIDERS: Anesthesiology; Admitting Provider Physician Assistant Medical; Emergency Provider Emergency Medicine; Visit Provider Physician Assistant Medical
DX: I63.9 Cerebral infarction, unspecified (principal); G93.6 Cerebral edema; J95.811 Postprocedural pneumothorax; I21.4 Non-ST elevation (NSTEMI) myocardial infarction; J96.01 Acute respiratory failure with hypoxia; E87.2 Acidosis; N17.9 Acute kidney failure, unspecified; N39.0 Urinary tract infection, site not specified; J81.1 Chronic pulmonary edema; G93.1 Anoxic brain damage, not elsewhere classified; R73.9 Hyperglycemia, unspecified; I10 Essential (primary) hypertension; R00.1 Bradycardia, unspecified; Z20.822 Contact with and (suspected) exposure to COVID-19; Z86.74 Personal history of sudden cardiac arrest; Z79.899 Other long term (current) drug therapy
CPT/HCPCS: 36415; 70450; 70551; 71045; 71275; 72125; 74177; 80048; 80053; 80076; 80307; 81001; 82077; 82803; 82947; 83036; 83605; 83690; 83735; 83880; 84100; 84484; 85025; 85379; 85610; 87040; 87076; 87205; 87635; 93005; 94002; 94003; 96361; 96374; 99285; 99498; J0461; J1170; J1265; J1940; J2060; J2543; Q9967